=== PATIENT | female | born 1965 | race Caucasian/White ===

== ENCOUNTER 2023-03-28 07:12 | Outpatient (REF) | payer OTHER, SELFPAY ==
[2023-03-28] VITALS (8 sets, daily range): BP systolic 86–117; BP diastolic 69–80
[2023-03-28 07:47] LABS: INR 1.02; PT 13.4 Sec (11.4-14.6)
== END 2023-03-28 12:16 | disposition home or self-care (01) ==
LOC: RADI 07:12
PROVIDERS: ATTENDING PHYSICIAN Internal Medicine Hematology & Oncology; FAMILY PHYSICIAN Family Medicine
DX: C78.7 Secondary malignant neoplasm of liver and intrahepatic bile duct (principal); C50.919 Malignant neoplasm of unspecified site of unspecified female breast; Z01.812 Encounter for preprocedural laboratory examination
CPT/HCPCS: 88307; 36415; 47000; 76942; 85610; 88333; 88341; 88342; 88360; 99152; 99153

== ENCOUNTER → 2023-04-01 07:40 | Outpatient (REF) | payer OTHER, SELFPAY ==
[2023-04-01 09:09] LABS: ALT (SGPT) 31 U/L (0-35); AST (SGOT) 55 U/L (14-36); Albumin 3.3 g/dl (3.5-5.0); Alkaline Phosphatase 208 U/L (38-126); Direct Bilirubin 0.4 mg/dl (0.0-0.4); Total Bilirubin 0.6 mg/dl (0.2-1.3); Total Protein 6.1 g/dl (6.3-8.2)
[2023-04-03 05:53] LABS: CA 27-29 829.1 U/mL (<=39.0)
== END ==
LOC: REG 07:40
PROVIDERS: ATTENDING PHYSICIAN Internal Medicine Hematology & Oncology
DX: C50.919 Malignant neoplasm of unspecified site of unspecified female breast (principal); C79.51 Secondary malignant neoplasm of bone; D64.9 Anemia, unspecified
CPT/HCPCS: 36415; 80076; 86300

== ENCOUNTER → 2023-04-15 13:47 | Outpatient (REF) | payer OTHER, SELFPAY ==
[2023-04-15 12:53] LABS: % Basophils 0.9 % (0-2); % Eosinophils 1.9 % (0-6); % Immature Granulocytes 0.4 % (0-0.5); % Lymphocytes 10.4 % (20.5-51.1); % Monocytes 10.7 % (1.7-9.3); % Neutrophils 75.7 % (42.2-75.2); Absolute Basophils 0.1 10^3/uL (0-0.2); Absolute Eosinophils 0.1 10^3/uL (0-0.7); Absolute Lymphocytes 0.8 10^3/uL (1.2-3.4); Absolute Monocytes 0.8 10^3/uL (0.1-0.6); Absolute Neutrophils 5.6 10^3/uL (1.4-6.5); Hematocrit 29.7 % (37.0-47.0); Hemoglobin 9.3 g/dL (12.0-16.0); Mean Corp Hgb Conc. 31.3 g/dL (33.0-37.0); Mean Corpuscular Hgb 29.6 pg (27.0-31.0); Mean Corpuscular Volume 94.6 fL (81.0-99.0); Mean Platelet Volume 8.8 fL (7.4-10.4); Nucleated Red Blood Cells % 0 %; Platelet Count 475 10^3/uL (130-400); Red Blood Cell Count 3.14 10^6/uL (4.20-5.40); White Blood Cell Count 7.4 10^3/uL (4.8-10.8)
[2023-04-15 13:12] LABS: ALT (SGPT) 27 U/L (0-35); AST (SGOT) 53 U/L (14-36); Albumin 3.6 g/dl (3.5-5.0); Alkaline Phosphatase 346 U/L (38-126); Blood Urea Nitrogen 18 mg/dl (7-17); Carbon Dioxide 25 mmol/L (22-30); Chloride 103 mmol/L (98-107); Glucose 121 mg/dl (70-99); Potassium 4.6 mmol/L (3.5-5.1); Sodium 135 mmol/L (135-145); Total Bilirubin 0.3 mg/dl (0.2-1.3); Total Protein 6.4 g/dl (6.3-8.2); eGFR > 60.00
== END ==
LOC: OIDL 13:47
PROVIDERS: ATTENDING PHYSICIAN Internal Medicine Hematology & Oncology
DX: C50.919 Malignant neoplasm of unspecified site of unspecified female breast (principal)
CPT/HCPCS: 80053; 85025

== ENCOUNTER → 2023-04-22 08:01 | Outpatient (REF) | payer OTHER, SELFPAY ==
[2023-04-22 08:35] LABS: % Basophils 1.7 % (0-2); % Eosinophils 4.8 % (0-6); % Immature Granulocytes 0.4 % (0-0.5); % Monocytes 3.9 % (1.7-9.3); % Neutrophils 69.2 % (42.2-75.2); Absolute Eosinophils 0.1 10^3/uL (0-0.7); Absolute Lymphocytes 0.5 10^3/uL (1.2-3.4); Absolute Monocytes 0.1 10^3/uL (0.1-0.6); Absolute Neutrophils 1.6 10^3/uL (1.4-6.5); Hematocrit 32.9 % (37.0-47.0); Hemoglobin 10.5 g/dL (12.0-16.0); Mean Corp Hgb Conc. 31.9 g/dL (33.0-37.0); Mean Corpuscular Hgb 29.7 pg (27.0-31.0); Mean Corpuscular Volume 92.9 fL (81.0-99.0); Mean Platelet Volume 8.6 fL (7.4-10.4); Nucleated Red Blood Cells % 0 %; Platelet Count 375 10^3/uL (130-400); Red Blood Cell Count 3.54 10^6/uL (4.20-5.40); Red Cell Dist. Width 15.9 % (11.5-14.5); White Blood Cell Count 2.3 10^3/uL (4.8-10.8)
[2023-04-22 09:08] LABS: ALT (SGPT) 46 U/L (0-35); AST (SGOT) 72 U/L (14-36); Albumin 3.7 g/dl (3.5-5.0); Alkaline Phosphatase 323 U/L (38-126); Blood Urea Nitrogen 18 mg/dl (7-17); Calcium 9.4 mg/dl (8.4-10.2); Carbon Dioxide 25 mmol/L (22-30); Chloride 103 mmol/L (98-107); Glucose 154 mg/dl (70-99); Potassium 4.2 mmol/L (3.5-5.1); Sodium 140 mmol/L (135-145); Total Bilirubin 0.3 mg/dl (0.2-1.3); Total Protein 6.8 g/dl (6.3-8.2); eGFR > 60.00
== END ==
LOC: REG 08:01
PROVIDERS: ATTENDING PHYSICIAN Internal Medicine Hematology & Oncology; FAMILY PHYSICIAN Family Medicine
DX: C50.919 Malignant neoplasm of unspecified site of unspecified female breast (principal); C79.51 Secondary malignant neoplasm of bone; D64.9 Anemia, unspecified
CPT/HCPCS: 36415; 80053; 85025

== ENCOUNTER → 2023-04-29 07:11 | Outpatient (REF) | payer OTHER, SELFPAY ==
[2023-04-29 08:35] LABS: ALT (SGPT) 41 U/L (0-35); AST (SGOT) 50 U/L (14-36); Albumin 3.7 g/dl (3.5-5.0); Alkaline Phosphatase 290 U/L (38-126); Blood Urea Nitrogen 17 mg/dl (7-17); Calcium 9.3 mg/dl (8.4-10.2); Carbon Dioxide 25 mmol/L (22-30); Chloride 102 mmol/L (98-107); Glucose 101 mg/dl (70-99); Potassium 4.5 mmol/L (3.5-5.1); Sodium 136 mmol/L (135-145); Total Bilirubin 0.7 mg/dl (0.2-1.3); Total Protein 6.5 g/dl (6.3-8.2); eGFR > 60.00
[2023-04-29 08:47] LABS: % Basophils 0.4 % (0-2); % Eosinophils 1.2 % (0-6); % Lymphocytes 9.7 % (20.5-51.1); % Monocytes 13.3 % (1.7-9.3); % Neutrophils 66.4 % (42.2-75.2); Absolute Eosinophils 0.1 10^3/uL (0-0.7); Absolute Immature Granulocytes 0.7 10^3/uL (0-0.05); Absolute Lymphocytes 0.8 10^3/uL (1.2-3.4); Absolute Monocytes 1.1 10^3/uL (0.1-0.6); Absolute Neutrophils 5.3 10^3/uL (1.4-6.5); Hematocrit 31.7 % (37.0-47.0); Hemoglobin 10.1 g/dL (12.0-16.0); Mean Corp Hgb Conc. 31.9 g/dL (33.0-37.0); Mean Corpuscular Hgb 29.6 pg (27.0-31.0); Nucleated Red Blood Cells % 2.4 %; Red Blood Cell Count 3.41 10^6/uL (4.20-5.40); Red Cell Dist. Width 16.6 % (11.5-14.5)
== END ==
LOC: REG 07:11
PROVIDERS: ATTENDING PHYSICIAN Internal Medicine Hematology & Oncology
DX: C50.919 Malignant neoplasm of unspecified site of unspecified female breast (principal); C79.51 Secondary malignant neoplasm of bone; D64.9 Anemia, unspecified
CPT/HCPCS: 36415; 80053; 85025

== ENCOUNTER → 2023-04-29 13:45 | Outpatient (REF) | payer OTHER, SELFPAY | LOC: RAD 13:45 | PROVIDERS: ATTENDING PHYSICIAN Nurse Practitioner Adult Health; FAMILY PHYSICIAN Family Medicine | DX: C50.919 Malignant neoplasm of unspecified site of unspecified female breast (principal); C79.51 Secondary malignant neoplasm of bone; D64.9 Anemia, unspecified | CPT/HCPCS: 71111 ==

== ENCOUNTER → 2023-05-07 13:34 | Outpatient (REF) | payer OTHER, SELFPAY ==
[2023-05-10 01:17] LABS: CA 27-29 1001.7 U/mL (<=39.0)
== END ==
LOC: OIDL 13:34
PROVIDERS: ATTENDING PHYSICIAN Internal Medicine Hematology & Oncology
DX: C50.919 Malignant neoplasm of unspecified site of unspecified female breast (principal)
CPT/HCPCS: 86300

== ENCOUNTER → 2023-05-13 07:07 | Outpatient (REF) | payer OTHER, SELFPAY ==
[2023-05-13 08:36] LABS: % Basophils 1.9 % (0-2); % Eosinophils 1.4 % (0-6); % Immature Granulocytes 0.9 % (0-0.5); % Lymphocytes 23.1 % (20.5-51.1); % Monocytes 7.5 % (1.7-9.3); % Neutrophils 65.2 % (42.2-75.2); Absolute Lymphocytes 0.5 10^3/uL (1.2-3.4); Absolute Monocytes 0.2 10^3/uL (0.1-0.6); Absolute Neutrophils 1.4 10^3/uL (1.4-6.5); Hematocrit 28.4 % (37.0-47.0); Hemoglobin 9.4 g/dL (12.0-16.0); Mean Corp Hgb Conc. 33.1 g/dL (33.0-37.0); Mean Corpuscular Volume 90.7 fL (81.0-99.0); Mean Platelet Volume 9.6 fL (7.4-10.4); Nucleated Red Blood Cells % 0 %; Platelet Count 230 10^3/uL (130-400); Red Blood Cell Count 3.13 10^6/uL (4.20-5.40); Red Cell Dist. Width 17.6 % (11.5-14.5); White Blood Cell Count 2.1 10^3/uL (4.8-10.8)
[2023-05-13 09:07] LABS: ALT (SGPT) 63 U/L (0-35); AST (SGOT) 75 U/L (14-36); Albumin 3.7 g/dl (3.5-5.0); Alkaline Phosphatase 293 U/L (38-126); Blood Urea Nitrogen 20 mg/dl (7-17); Calcium 9.1 mg/dl (8.4-10.2); Carbon Dioxide 24 mmol/L (22-30); Chloride 106 mmol/L (98-107); Glucose 93 mg/dl (70-99); Potassium 4.3 mmol/L (3.5-5.1); Sodium 137 mmol/L (135-145); Total Bilirubin 0.4 mg/dl (0.2-1.3); Total Protein 6.5 g/dl (6.3-8.2); eGFR > 60.00
== END ==
LOC: REG 07:07
PROVIDERS: ATTENDING PHYSICIAN Internal Medicine Hematology & Oncology; FAMILY PHYSICIAN Family Medicine
DX: C50.919 Malignant neoplasm of unspecified site of unspecified female breast (principal); C79.51 Secondary malignant neoplasm of bone; D64.9 Anemia, unspecified
CPT/HCPCS: 36415; 80053; 85025

== ENCOUNTER → 2023-05-14 09:07 | Outpatient (REF) | payer OTHER, SELFPAY | LOC: PAVMRI 09:07 | PROVIDERS: ATTENDING PHYSICIAN Internal Medicine Hematology & Oncology; FAMILY PHYSICIAN Family Medicine | DX: C50.919 Malignant neoplasm of unspecified site of unspecified female breast (principal); C79.51 Secondary malignant neoplasm of bone; D64.9 Anemia, unspecified | CPT/HCPCS: 70553; A9575 ==

== ENCOUNTER → 2023-05-20 08:22 | Outpatient (REF) | payer OTHER, SELFPAY ==
[2023-05-20 09:22] LABS: Hematocrit 28.4 % (37.0-47.0); Mean Corp Hgb Conc. 31.7 g/dL (33.0-37.0); Mean Corpuscular Hgb 29.5 pg (27.0-31.0); Mean Corpuscular Volume 93.1 fL (81.0-99.0); Mean Platelet Volume 10.3 fL (7.4-10.4); Platelet Count 239 10^3/uL (130-400); Red Blood Cell Count 3.05 10^6/uL (4.20-5.40); Red Cell Dist. Width 18.3 % (11.5-14.5); White Blood Cell Count 9.4 10^3/uL (4.8-10.8)
[2023-05-20 09:46] LABS: ALT (SGPT) 38 U/L (0-35); AST (SGOT) 42 U/L (14-36); Albumin 3.8 g/dl (3.5-5.0); Alkaline Phosphatase 238 U/L (38-126); Blood Urea Nitrogen 24 mg/dl (7-17); Calcium 9.4 mg/dl (8.4-10.2); Carbon Dioxide 25 mmol/L (22-30); Chloride 103 mmol/L (98-107); Glucose 110 mg/dl (70-99); Potassium 4.5 mmol/L (3.5-5.1); Sodium 136 mmol/L (135-145); Total Bilirubin 0.4 mg/dl (0.2-1.3); Total Protein 6.4 g/dl (6.3-8.2); eGFR > 60.00
[2023-05-20 10:36] LABS: Band Neutrophils 8 % (0-3); Eosinophils 1 % (0-6); Lymphocytes 14 % (20-51); Metamyelocytes 1 % (-); Monocytes 7 % (2-9); Myelocytes 2 % (-); Segmented Neutrophils 67 % (42-75)
[2023-05-20 10:37] LABS: Anisocytosis Slight; Normal RBC Morphology No; Ovalocytes Slight; Platelets Checked Yes; Polychromasia Slight; Total Cells Counted 100
== END ==
LOC: REG 08:22
PROVIDERS: ATTENDING PHYSICIAN Internal Medicine Hematology & Oncology; FAMILY PHYSICIAN Family Medicine
DX: C50.919 Malignant neoplasm of unspecified site of unspecified female breast (principal); C79.51 Secondary malignant neoplasm of bone; D64.9 Anemia, unspecified
CPT/HCPCS: 36415; 80053; 85025

== ENCOUNTER → 2023-06-03 07:36 | Outpatient (REF) | payer OTHER, SELFPAY ==
[2023-06-03 09:15] LABS: % Basophils 0.8 % (0-2); % Eosinophils 2.4 % (0-6); % Immature Granulocytes 1.2 % (0-0.5); % Lymphocytes 15.7 % (20.5-51.1); % Monocytes 9.3 % (1.7-9.3); % Neutrophils 70.6 % (42.2-75.2); Absolute Eosinophils 0.1 10^3/uL (0-0.7); Absolute Lymphocytes 0.4 10^3/uL (1.2-3.4); Absolute Monocytes 0.2 10^3/uL (0.1-0.6); Absolute Neutrophils 1.8 10^3/uL (1.4-6.5); Hematocrit 25.9 % (37.0-47.0); Hemoglobin 8.2 g/dL (12.0-16.0); Mean Corp Hgb Conc. 31.7 g/dL (33.0-37.0); Mean Corpuscular Hgb 29.6 pg (27.0-31.0); Mean Corpuscular Volume 93.5 fL (81.0-99.0); Mean Platelet Volume 9.9 fL (7.4-10.4); Nucleated Red Blood Cells % 0 %; Platelet Count 177 10^3/uL (130-400); Red Blood Cell Count 2.77 10^6/uL (4.20-5.40); Red Cell Dist. Width 19.5 % (11.5-14.5); White Blood Cell Count 2.5 10^3/uL (4.8-10.8)
[2023-06-03 09:49] LABS: ALT (SGPT) 39 U/L (0-35); AST (SGOT) 63 U/L (14-36); Albumin 3.7 g/dl (3.5-5.0); Alkaline Phosphatase 244 U/L (38-126); Blood Urea Nitrogen 17 mg/dl (7-17); Calcium 9.3 mg/dl (8.4-10.2); Carbon Dioxide 25 mmol/L (22-30); Chloride 105 mmol/L (98-107); Glucose 108 mg/dl (70-99); Potassium 4.3 mmol/L (3.5-5.1); Sodium 138 mmol/L (135-145); Total Bilirubin 0.4 mg/dl (0.2-1.3); Total Protein 6.3 g/dl (6.3-8.2); eGFR > 60.00
== END ==
LOC: REG 07:36
PROVIDERS: ATTENDING PHYSICIAN Internal Medicine Hematology & Oncology; FAMILY PHYSICIAN Family Medicine
DX: C50.919 Malignant neoplasm of unspecified site of unspecified female breast (principal); C79.51 Secondary malignant neoplasm of bone; D64.9 Anemia, unspecified
CPT/HCPCS: 36415; 80053; 85025

== ENCOUNTER → 2023-06-10 06:57 | Outpatient (REF) | payer OTHER, SELFPAY ==
[2023-06-10 08:15] LABS: % Basophils 0.4 % (0-2); % Eosinophils 1.6 % (0-6); % Immature Granulocytes 8.2 % (0-0.5); % Lymphocytes 6.5 % (20.5-51.1); % Monocytes 10.7 % (1.7-9.3); % Neutrophils 72.6 % (42.2-75.2); Absolute Basophils 0.1 10^3/uL (0-0.2); Absolute Eosinophils 0.3 10^3/uL (0-0.7); Absolute Immature Granulocytes 1.3 10^3/uL (0-0.05); Absolute Monocytes 1.7 10^3/uL (0.1-0.6); Absolute Neutrophils 11.6 10^3/uL (1.4-6.5); Hematocrit 26.2 % (37.0-47.0); Hemoglobin 8.3 g/dL (12.0-16.0); Mean Corp Hgb Conc. 31.7 g/dL (33.0-37.0); Mean Corpuscular Hgb 29.6 pg (27.0-31.0); Mean Corpuscular Volume 93.6 fL (81.0-99.0); Nucleated Red Blood Cells % 2.6 %; Platelet Count 250 10^3/uL (130-400); Red Cell Dist. Width 20.9 % (11.5-14.5)
[2023-06-10 09:01] LABS: ALT (SGPT) 40 U/L (0-35); AST (SGOT) 55 U/L (14-36); Albumin 3.8 g/dl (3.5-5.0); Alkaline Phosphatase 286 U/L (38-126); Blood Urea Nitrogen 17 mg/dl (7-17); Calcium 9.7 mg/dl (8.4-10.2); Carbon Dioxide 26 mmol/L (22-30); Chloride 105 mmol/L (98-107); Glucose 90 mg/dl (70-99); Potassium 4.7 mmol/L (3.5-5.1); Sodium 138 mmol/L (135-145); Total Bilirubin 0.4 mg/dl (0.2-1.3); Total Protein 6.2 g/dl (6.3-8.2); eGFR > 60.00
[2023-06-10 09:59] LABS: Folate 11.6 ng/ml (2.76-20); Vitamin B12 > 1000 pg/ml (239-931)
== END ==
LOC: REG 06:57
PROVIDERS: ATTENDING PHYSICIAN Internal Medicine Hematology & Oncology; FAMILY PHYSICIAN Family Medicine
DX: C50.919 Malignant neoplasm of unspecified site of unspecified female breast (principal); C79.51 Secondary malignant neoplasm of bone; D64.9 Anemia, unspecified
CPT/HCPCS: 36415; 80053; 82607; 82746; 85025

== ENCOUNTER → 2023-06-17 07:50 | Outpatient (REF) | payer OTHER, SELFPAY ==
[2023-06-17 08:36] LABS: % Basophils 0.7 % (0-2); % Eosinophils 2.3 % (0-6); % Immature Granulocytes 5.2 % (0-0.5); % Lymphocytes 5.6 % (20.5-51.1); % Monocytes 5.9 % (1.7-9.3); % Neutrophils 80.3 % (42.2-75.2); Absolute Basophils 0.1 10^3/uL (0-0.2); Absolute Eosinophils 0.3 10^3/uL (0-0.7); Absolute Immature Granulocytes 0.7 10^3/uL (0-0.05); Absolute Lymphocytes 0.7 10^3/uL (1.2-3.4); Absolute Monocytes 0.8 10^3/uL (0.1-0.6); Absolute Neutrophils 10.3 10^3/uL (1.4-6.5); Hematocrit 24.7 % (37.0-47.0); Hemoglobin 7.8 g/dL (12.0-16.0); Mean Corp Hgb Conc. 31.6 g/dL (33.0-37.0); Mean Corpuscular Hgb 29.2 pg (27.0-31.0); Mean Corpuscular Volume 92.5 fL (81.0-99.0); Mean Platelet Volume 9.6 fL (7.4-10.4); Nucleated Red Blood Cells % 1.2 %; Platelet Count 190 10^3/uL (130-400); Red Blood Cell Count 2.67 10^6/uL (4.20-5.40); Red Cell Dist. Width 21.9 % (11.5-14.5); White Blood Cell Count 12.9 10^3/uL (4.8-10.8)
[2023-06-17 09:05] LABS: ALT (SGPT) 39 U/L (0-35); AST (SGOT) 56 U/L (14-36); Albumin 3.5 g/dl (3.5-5.0); Alkaline Phosphatase 266 U/L (38-126); Blood Urea Nitrogen 16 mg/dl (7-17); Calcium 8.8 mg/dl (8.4-10.2); Carbon Dioxide 24 mmol/L (22-30); Chloride 106 mmol/L (98-107); Glucose 123 mg/dl (70-99); Potassium 3.8 mmol/L (3.5-5.1); Sodium 137 mmol/L (135-145); Total Bilirubin 0.3 mg/dl (0.2-1.3); eGFR > 60.00
[2023-06-18 16:51] LABS: CA 27-29 1259.2 U/mL (<=39.0)
== END ==
LOC: REG 07:50
PROVIDERS: ATTENDING PHYSICIAN Internal Medicine Hematology & Oncology; FAMILY PHYSICIAN Family Medicine
DX: C50.919 Malignant neoplasm of unspecified site of unspecified female breast (principal); C79.51 Secondary malignant neoplasm of bone; D64.9 Anemia, unspecified
CPT/HCPCS: 36415; 71111; 80053; 85025; 86300

== ENCOUNTER 2023-06-19 09:10 | Outpatient (RCR) | payer OTHER, SELFPAY ==
[2023-06-18 13:51] LABS: % Basophils 0.6 % (0-2); % Eosinophils 2.6 % (0-6); % Immature Granulocytes 1.7 % (0-0.5); % Lymphocytes 7.5 % (20.5-51.1); % Monocytes 6.8 % (1.7-9.3); % Neutrophils 80.8 % (42.2-75.2); Absolute Basophils 0.1 10^3/uL (0-0.2); Absolute Eosinophils 0.3 10^3/uL (0-0.7); Absolute Immature Granulocytes 0.2 10^3/uL (0-0.05); Absolute Lymphocytes 0.9 10^3/uL (1.2-3.4); Absolute Monocytes 0.8 10^3/uL (0.1-0.6); Absolute Neutrophils 9.8 10^3/uL (1.4-6.5); Hematocrit 25.4 % (37.0-47.0); Mean Corp Hgb Conc. 31.5 g/dL (33.0-37.0); Mean Corpuscular Volume 95.1 fL (81.0-99.0); Platelet Count 183 10^3/uL (130-400); Red Blood Cell Count 2.67 10^6/uL (4.20-5.40); Red Cell Dist. Width 21.5 % (11.5-14.5); White Blood Cell Count 12.1 10^3/uL (4.8-10.8)
[2023-06-18 15:36] LABS: ALT (SGPT) 39 U/L (0-35); AST (SGOT) 65 U/L (14-36); Albumin 3.7 g/dl (3.5-5.0); Alkaline Phosphatase 278 U/L (38-126); Blood Urea Nitrogen 15 mg/dl (7-17); Calcium 9.3 mg/dl (8.4-10.2); Carbon Dioxide 22 mmol/L (22-30); Chloride 104 mmol/L (98-107); Glucose 113 mg/dl (70-99); Iron 55 ug/dl (37-170); Potassium 4.3 mmol/L (3.5-5.1); Sodium 136 mmol/L (135-145); Total Bilirubin 0.4 mg/dl (0.2-1.3); Total Protein 6.2 g/dl (6.3-8.2); eGFR > 60.00
[2023-06-18 15:46] LABS: Percent Saturation 20 % (20-50); Total Iron Binding Capacity 266 ug/dl (265-497)
[2023-06-19] VITALS (7 sets, daily range): BP systolic 88–105; BP diastolic 55–63
[2023-06-19] MEDS: TYLENOL 650 MG PO (09:48)
== END 2023-07-12 23:59 | disposition home or self-care (01) ==
LOC: OID 09:10
PROVIDERS: ATTENDING PHYSICIAN Internal Medicine Hematology & Oncology; FAMILY PHYSICIAN Family Medicine
DX: C50.912 Malignant neoplasm of unspecified site of left female breast (principal); C79.51 Secondary malignant neoplasm of bone; Z17.0 Estrogen receptor positive status [ER+]
CPT/HCPCS: 36430; 80053; 82728; 83540; 83550; 85025; 86850; 86900; 86901; 86920; P9016

== ENCOUNTER → 2023-06-24 06:57 | Outpatient (REF) | payer OTHER, SELFPAY ==
[2023-06-24 08:02] LABS: % Basophils 1.7 % (0-2); % Eosinophils 4.5 % (0-6); % Immature Granulocytes 2.1 % (0-0.5); % Lymphocytes 11.6 % (20.5-51.1); % Monocytes 6.6 % (1.7-9.3); % Neutrophils 73.5 % (42.2-75.2); Absolute Eosinophils 0.1 10^3/uL (0-0.7); Absolute Immature Granulocytes 0.1 10^3/uL (0-0.05); Absolute Lymphocytes 0.3 10^3/uL (1.2-3.4); Absolute Monocytes 0.2 10^3/uL (0.1-0.6); Absolute Neutrophils 1.8 10^3/uL (1.4-6.5); Hematocrit 35.2 % (37.0-47.0); Hemoglobin 11.2 g/dL (12.0-16.0); Mean Corp Hgb Conc. 31.8 g/dL (33.0-37.0); Mean Corpuscular Hgb 29.3 pg (27.0-31.0); Mean Corpuscular Volume 92.1 fL (81.0-99.0); Mean Platelet Volume 9.6 fL (7.4-10.4); Nucleated Red Blood Cells % 0 %; Platelet Count 139 10^3/uL (130-400); Red Blood Cell Count 3.82 10^6/uL (4.20-5.40); Red Cell Dist. Width 18.7 % (11.5-14.5); White Blood Cell Count 2.4 10^3/uL (4.8-10.8)
[2023-06-24 08:26] LABS: ALT (SGPT) 70 U/L (0-35); AST (SGOT) 83 U/L (14-36); Albumin 3.6 g/dl (3.5-5.0); Alkaline Phosphatase 339 U/L (38-126); Blood Urea Nitrogen 16 mg/dl (7-17); Calcium 9.3 mg/dl (8.4-10.2); Carbon Dioxide 27 mmol/L (22-30); Chloride 104 mmol/L (98-107); Glucose 91 mg/dl (70-99); Potassium 4.4 mmol/L (3.5-5.1); Sodium 139 mmol/L (135-145); Total Bilirubin 0.5 mg/dl (0.2-1.3); Total Protein 6.2 g/dl (6.3-8.2); eGFR > 60.00
== END ==
LOC: REG 06:57
PROVIDERS: ATTENDING PHYSICIAN Internal Medicine Hematology & Oncology
DX: C50.919 Malignant neoplasm of unspecified site of unspecified female breast (principal); C79.51 Secondary malignant neoplasm of bone; D64.9 Anemia, unspecified
CPT/HCPCS: 36415; 80053; 85025

== ENCOUNTER → 2023-07-01 07:43 | Outpatient (REF) | payer OTHER, SELFPAY ==
[2023-07-01 08:59] LABS: % Basophils 0.4 % (0-2); % Eosinophils 2.1 % (0-6); % Immature Granulocytes 5.4 % (0-0.5); % Lymphocytes 5.7 % (20.5-51.1); % Monocytes 10.2 % (1.7-9.3); % Neutrophils 76.2 % (42.2-75.2); Absolute Eosinophils 0.2 10^3/uL (0-0.7); Absolute Immature Granulocytes 0.4 10^3/uL (0-0.05); Absolute Lymphocytes 0.4 10^3/uL (1.2-3.4); Absolute Monocytes 0.7 10^3/uL (0.1-0.6); Absolute Neutrophils 5.4 10^3/uL (1.4-6.5); Hematocrit 32.1 % (37.0-47.0); Hemoglobin 10.2 g/dL (12.0-16.0); Mean Corp Hgb Conc. 31.8 g/dL (33.0-37.0); Mean Corpuscular Hgb 29.1 pg (27.0-31.0); Mean Corpuscular Volume 91.5 fL (81.0-99.0); Mean Platelet Volume 10.6 fL (7.4-10.4); Nucleated Red Blood Cells % 0.6 %; Platelet Count 166 10^3/uL (130-400); Red Blood Cell Count 3.51 10^6/uL (4.20-5.40); Red Cell Dist. Width 18.6 % (11.5-14.5); White Blood Cell Count 7.1 10^3/uL (4.8-10.8)
[2023-07-01 09:36] LABS: ALT (SGPT) 55 U/L (0-35); AST (SGOT) 65 U/L (14-36); Albumin 3.6 g/dl (3.5-5.0); Alkaline Phosphatase 309 U/L (38-126); Blood Urea Nitrogen 16 mg/dl (7-17); Calcium 9.5 mg/dl (8.4-10.2); Carbon Dioxide 26 mmol/L (22-30); Chloride 105 mmol/L (98-107); Glucose 95 mg/dl (70-99); Potassium 4.2 mmol/L (3.5-5.1); Sodium 140 mmol/L (135-145); Total Bilirubin 0.6 mg/dl (0.2-1.3); Total Protein 6.1 g/dl (6.3-8.2); eGFR > 60.00
== END ==
LOC: REG 07:43
PROVIDERS: ATTENDING PHYSICIAN Internal Medicine Hematology & Oncology; FAMILY PHYSICIAN Family Medicine
DX: C50.919 Malignant neoplasm of unspecified site of unspecified female breast (principal); C79.51 Secondary malignant neoplasm of bone; D64.9 Anemia, unspecified
CPT/HCPCS: 36415; 80053; 85025

== ENCOUNTER → 2023-07-09 07:00 | Outpatient (REF) | payer OTHER, SELFPAY ==
[2023-07-09 08:34] LABS: % Basophils 0.7 % (0-2); % Eosinophils 1.7 % (0-6); % Immature Granulocytes 4.3 % (0-0.5); % Lymphocytes 7.4 % (20.5-51.1); % Monocytes 5.2 % (1.7-9.3); % Neutrophils 80.7 % (42.2-75.2); Absolute Basophils 0.1 10^3/uL (0-0.2); Absolute Eosinophils 0.3 10^3/uL (0-0.7); Absolute Immature Granulocytes 0.7 10^3/uL (0-0.05); Absolute Lymphocytes 1.1 10^3/uL (1.2-3.4); Absolute Monocytes 0.8 10^3/uL (0.1-0.6); Absolute Neutrophils 12.1 10^3/uL (1.4-6.5); Hematocrit 31.5 % (37.0-47.0); Hemoglobin 10.1 g/dL (12.0-16.0); Mean Corp Hgb Conc. 32.1 g/dL (33.0-37.0); Mean Corpuscular Hgb 30.2 pg (27.0-31.0); Mean Corpuscular Volume 94.3 fL (81.0-99.0); Mean Platelet Volume 9.6 fL (7.4-10.4); Nucleated Red Blood Cells % 0.6 %; Platelet Count 219 10^3/uL (130-400); Red Blood Cell Count 3.34 10^6/uL (4.20-5.40); Red Cell Dist. Width 19.4 % (11.5-14.5); White Blood Cell Count 15.1 10^3/uL (4.8-10.8)
[2023-07-09 08:44] LABS: ALT (SGPT) 55 U/L (0-35); AST (SGOT) 79 U/L (14-36); Albumin 3.6 g/dl (3.5-5.0); Alkaline Phosphatase 368 U/L (38-126); Blood Urea Nitrogen 12 mg/dl (7-17); Calcium 9.4 mg/dl (8.4-10.2); Carbon Dioxide 28 mmol/L (22-30); Chloride 105 mmol/L (98-107); Glucose 87 mg/dl (70-99); Potassium 4.7 mmol/L (3.5-5.1); Sodium 140 mmol/L (135-145); Total Bilirubin 0.5 mg/dl (0.2-1.3); Total Protein 6.3 g/dl (6.3-8.2); eGFR > 60.00
== END ==
LOC: REG 07:00
PROVIDERS: ATTENDING PHYSICIAN Internal Medicine Hematology & Oncology; FAMILY PHYSICIAN Family Medicine
DX: C50.919 Malignant neoplasm of unspecified site of unspecified female breast (principal); C79.51 Secondary malignant neoplasm of bone; D64.9 Anemia, unspecified
CPT/HCPCS: 36415; 80053; 85025

== ENCOUNTER → 2023-08-12 07:14 | Outpatient (REF) | payer OTHER, SELFPAY ==
[2023-08-12 08:41] LABS: % Basophils 0.3 % (0-2); % Eosinophils 12.9 % (0-6); % Immature Granulocytes 0.3 % (0-0.5); % Lymphocytes 10.6 % (20.5-51.1); % Monocytes 6.6 % (1.7-9.3); % Neutrophils 69.3 % (42.2-75.2); Absolute Eosinophils 0.5 10^3/uL (0-0.7); Absolute Lymphocytes 0.4 10^3/uL (1.2-3.4); Absolute Monocytes 0.2 10^3/uL (0.1-0.6); Absolute Neutrophils 2.4 10^3/uL (1.4-6.5); Hematocrit 32.2 % (37.0-47.0); Mean Corp Hgb Conc. 31.1 g/dL (33.0-37.0); Mean Corpuscular Hgb 29.7 pg (27.0-31.0); Mean Corpuscular Volume 95.5 fL (81.0-99.0); Mean Platelet Volume 9.7 fL (7.4-10.4); Nucleated Red Blood Cells % 0 %; Platelet Count 288 10^3/uL (130-400); Red Blood Cell Count 3.37 10^6/uL (4.20-5.40); Red Cell Dist. Width 18.6 % (11.5-14.5); White Blood Cell Count 3.5 10^3/uL (4.8-10.8)
[2023-08-12 09:10] LABS: ALT (SGPT) 40 U/L (0-35); AST (SGOT) 97 U/L (14-36); Albumin 3.5 g/dl (3.5-5.0); Alkaline Phosphatase 526 U/L (38-126); Blood Urea Nitrogen 14 mg/dl (7-17); Calcium 8.9 mg/dl (8.4-10.2); Carbon Dioxide 25 mmol/L (22-30); Chloride 106 mmol/L (98-107); Glucose 79 mg/dl (70-99); Potassium 4.5 mmol/L (3.5-5.1); Sodium 139 mmol/L (135-145); Total Bilirubin 0.7 mg/dl (0.2-1.3); Total Protein 6.6 g/dl (6.3-8.2); eGFR > 60.00
== END ==
LOC: REG 07:14
PROVIDERS: ATTENDING PHYSICIAN Internal Medicine Hematology & Oncology; FAMILY PHYSICIAN Family Medicine
DX: C50.919 Malignant neoplasm of unspecified site of unspecified female breast (principal); C79.51 Secondary malignant neoplasm of bone; D64.9 Anemia, unspecified; I26.99 Other pulmonary embolism without acute cor pulmonale
CPT/HCPCS: 36415; 80053; 85025

== ENCOUNTER → 2023-08-26 07:33 | Outpatient (REF) | payer OTHER, SELFPAY ==
[2023-08-26 08:19] LABS: % Basophils 0.2 % (0-2); % Immature Granulocytes 0.8 % (0-0.5); % Lymphocytes 5.5 % (20.5-51.1); % Monocytes 6.2 % (1.7-9.3); % Neutrophils 87.3 % (42.2-75.2); Absolute Immature Granulocytes 0.1 10^3/uL (0-0.05); Absolute Lymphocytes 0.7 10^3/uL (1.2-3.4); Absolute Monocytes 0.8 10^3/uL (0.1-0.6); Absolute Neutrophils 10.7 10^3/uL (1.4-6.5); Hematocrit 29.8 % (37.0-47.0); Hemoglobin 9.9 g/dL (12.0-16.0); Mean Corp Hgb Conc. 33.2 g/dL (33.0-37.0); Mean Corpuscular Hgb 30.9 pg (27.0-31.0); Mean Corpuscular Volume 93.1 fL (81.0-99.0); Mean Platelet Volume 9.1 fL (7.4-10.4); Nucleated Red Blood Cells % 0.2 %; Platelet Count 344 10^3/uL (130-400); Red Cell Dist. Width 18.9 % (11.5-14.5); White Blood Cell Count 12.3 10^3/uL (4.8-10.8)
[2023-08-26 09:00] LABS: ALT (SGPT) 96 U/L (0-35); AST (SGOT) 143 U/L (14-36); Albumin 3.4 g/dl (3.5-5.0); Alkaline Phosphatase 556 U/L (38-126); Blood Urea Nitrogen 23 mg/dl (7-17); Calcium 9.5 mg/dl (8.4-10.2); Carbon Dioxide 24 mmol/L (22-30); Chloride 105 mmol/L (98-107); Glucose 89 mg/dl (70-99); Potassium 4.8 mmol/L (3.5-5.1); Sodium 138 mmol/L (135-145); Total Protein 6.4 g/dl (6.3-8.2); eGFR > 60.00
== END ==
LOC: REG 07:33
PROVIDERS: ATTENDING PHYSICIAN Internal Medicine Hematology & Oncology; FAMILY PHYSICIAN Family Medicine
DX: C50.919 Malignant neoplasm of unspecified site of unspecified female breast (principal); C79.51 Secondary malignant neoplasm of bone; D64.9 Anemia, unspecified; I26.99 Other pulmonary embolism without acute cor pulmonale
CPT/HCPCS: 36415; 80053; 85025

== ENCOUNTER → 2023-09-16 12:09 | Outpatient (REF) | payer OTHER, SELFPAY ==
[2023-09-16 13:01] VITALS: BP 98/69; BP_SYST 87
== END ==
LOC: RADI 12:09
PROVIDERS: ATTENDING PHYSICIAN Internal Medicine Hematology & Oncology; FAMILY PHYSICIAN Family Medicine
DX: R22.2 Localized swelling, mass and lump, trunk (principal); C50.919 Malignant neoplasm of unspecified site of unspecified female breast; C79.51 Secondary malignant neoplasm of bone; D64.9 Anemia, unspecified
CPT/HCPCS: 49180; 76942

== ENCOUNTER → 2023-09-23 07:11 | Outpatient (REF) | payer OTHER, SELFPAY ==
[2023-09-23 08:17] LABS: % Immature Granulocytes 0.7 % (0-0.5); % Monocytes 9.7 % (1.7-9.3); % Neutrophils 79.6 % (42.2-75.2); Absolute Basophils 0.1 10^3/uL (0-0.2); Absolute Eosinophils 0.2 10^3/uL (0-0.7); Absolute Immature Granulocytes 0.1 10^3/uL (0-0.05); Absolute Lymphocytes 0.6 10^3/uL (1.2-3.4); Absolute Monocytes 0.8 10^3/uL (0.1-0.6); Absolute Neutrophils 6.9 10^3/uL (1.4-6.5); Hematocrit 29.2 % (37.0-47.0); Mean Corp Hgb Conc. 34.2 g/dL (33.0-37.0); Mean Corpuscular Hgb 30.9 pg (27.0-31.0); Mean Corpuscular Volume 90.1 fL (81.0-99.0); Mean Platelet Volume 9.7 fL (7.4-10.4); Nucleated Red Blood Cells % 0.2 %; Platelet Count 391 10^3/uL (130-400); Red Blood Cell Count 3.24 10^6/uL (4.20-5.40); Red Cell Dist. Width 19.5 % (11.5-14.5); White Blood Cell Count 8.6 10^3/uL (4.8-10.8)
[2023-09-23 08:53] LABS: ALT (SGPT) 97 U/L (0-35); AST (SGOT) 200 U/L (14-36); Albumin 3.1 g/dl (3.5-5.0); Alkaline Phosphatase 859 U/L (38-126); Blood Urea Nitrogen 20 mg/dl (7-17); Calcium 9.3 mg/dl (8.4-10.2); Carbon Dioxide 27 mmol/L (22-30); Chloride 102 mmol/L (98-107); Glucose 64 mg/dl (70-99); Potassium 4.7 mmol/L (3.5-5.1); Sodium 135 mmol/L (135-145); Total Protein 5.6 g/dl (6.3-8.2); eGFR 51.82
== END ==
LOC: REG 07:11
PROVIDERS: ATTENDING PHYSICIAN Internal Medicine Hematology & Oncology; FAMILY PHYSICIAN Family Medicine
DX: C50.919 Malignant neoplasm of unspecified site of unspecified female breast (principal); C79.51 Secondary malignant neoplasm of bone; D64.9 Anemia, unspecified; I26.99 Other pulmonary embolism without acute cor pulmonale
CPT/HCPCS: 36415; 80053; 85025

== ENCOUNTER 2023-09-25 06:04 | Day surgery (SDC) | payer OTHER, SELFPAY ==
--- NOTE | 2023-09-24 09:44 | PTCARENOTE ---
Abn Labs (GFR, Creatinine, Glucose), Nedra at Dr. Duncan's office made aware.
--- NOTE | 2023-09-24 14:20 | PTCARENOTE ---
[facility] labs, Dr. Jacobs with Anesthesia notified, no further actions requested.
[2023-09-25 06:55] VITALS: BMI 19.1
[2023-09-25 07:00] VITALS: BP 111/69
[2023-09-25 07:13] VITALS: BMI 19.1
[2023-09-25] MEDS: TYLENOL 1000 MG PO (07:14)
[2023-09-25] MEDS: NORMOSOL-R 1000 IV (07:20)
[2023-09-25 08:22] VITALS: BP 113/73
== END 2023-09-25 08:50 | disposition home or self-care (01) ==
LOC: SDS 06:04
PROVIDERS: ATTENDING PHYSICIAN Surgery
DX: R19.09 Other intra-abdominal and pelvic swelling, mass and lump (principal); M79.9 Soft tissue disorder, unspecified; D36.7 Benign neoplasm of other specified sites
CPT/HCPCS: 22902; 88304; 88341; 88342

== ENCOUNTER → 2023-10-04 16:16 | Outpatient (REF) | payer OTHER, SELFPAY ==
[2023-10-04 10:42] LABS: % Eosinophils 1.6 % (0-6); % Immature Granulocytes 1.4 % (0-0.5); % Lymphocytes 4.6 % (20.5-51.1); % Monocytes 7.4 % (1.7-9.3); Absolute Basophils 0.1 10^3/uL (0-0.2); Absolute Eosinophils 0.1 10^3/uL (0-0.7); Absolute Immature Granulocytes 0.1 10^3/uL (0-0.05); Absolute Lymphocytes 0.4 10^3/uL (1.2-3.4); Absolute Monocytes 0.7 10^3/uL (0.1-0.6); Absolute Neutrophils 7.5 10^3/uL (1.4-6.5); Hematocrit 29.3 % (37.0-47.0); Hemoglobin 10.1 g/dL (12.0-16.0); Mean Corp Hgb Conc. 34.5 g/dL (33.0-37.0); Mean Corpuscular Volume 86.9 fL (81.0-99.0); Mean Platelet Volume 9.7 fL (7.4-10.4); Nucleated Red Blood Cells % 1.6 %; Platelet Count 478 10^3/uL (130-400); Red Blood Cell Count 3.37 10^6/uL (4.20-5.40); Red Cell Dist. Width 20.7 % (11.5-14.5); White Blood Cell Count 8.9 10^3/uL (4.8-10.8)
[2023-10-04 10:54] LABS: ALT (SGPT) 98 U/L (0-35); AST (SGOT) 193 U/L (14-36); Alkaline Phosphatase 999 U/L (38-126); Blood Urea Nitrogen 15 mg/dl (7-17); Calcium 9.2 mg/dl (8.4-10.2); Carbon Dioxide 21 mmol/L (22-30); Chloride 104 mmol/L (98-107); Glucose 161 mg/dl (70-99); Potassium 4.9 mmol/L (3.5-5.1); Sodium 136 mmol/L (135-145); Total Bilirubin 2.7 mg/dl (0.2-1.3); Total Protein 5.4 g/dl (6.3-8.2); eGFR > 60.00
[2023-10-06 03:30] LABS: CA 27-29 7409.1 U/mL (<=39.0)
== END ==
LOC: OIDL 16:16
PROVIDERS: ATTENDING PHYSICIAN Internal Medicine Hematology & Oncology
DX: C50.919 Malignant neoplasm of unspecified site of unspecified female breast (principal)
CPT/HCPCS: 80053; 85025; 86300

== ENCOUNTER → 2023-10-15 07:01 | Outpatient (REF) | payer OTHER, SELFPAY ==
[2023-10-15 08:55] LABS: ALT (SGPT) 208 U/L (0-35); AST (SGOT) 464 U/L (14-36); Albumin 2.7 g/dl (3.5-5.0); Alkaline Phosphatase 1144 U/L (38-126); Blood Urea Nitrogen 29 mg/dl (7-17); Calcium 9.6 mg/dl (8.4-10.2); Carbon Dioxide 24 mmol/L (22-30); Chloride 102 mmol/L (98-107); Glucose 88 mg/dl (70-99); Potassium 4.8 mmol/L (3.5-5.1); Sodium 135 mmol/L (135-145); Total Bilirubin 4.7 mg/dl (0.2-1.3); Total Protein 5.1 g/dl (6.3-8.2); eGFR 57.52
[2023-10-15 09:08] LABS: Hematocrit 25.5 % (37.0-47.0); Hemoglobin 9.1 g/dL (12.0-16.0); Mean Corp Hgb Conc. 35.7 g/dL (33.0-37.0); Mean Corpuscular Volume 84.2 fL (81.0-99.0); Mean Platelet Volume 9.8 fL (7.4-10.4); Platelet Count 258 10^3/uL (130-400); Red Blood Cell Count 3.03 10^6/uL (4.20-5.40); Red Cell Dist. Width 19.9 % (11.5-14.5); White Blood Cell Count 5.9 10^3/uL (4.8-10.8)
[2023-10-15 10:11] LABS: % Basophils 0.7 % (0-2); % Eosinophils 0.5 % (0-6); % Immature Granulocytes 4.4 % (0-0.5); % Lymphocytes 9.9 % (20.5-51.1); % Monocytes 10.7 % (1.7-9.3); % Neutrophils 73.8 % (42.2-75.2); Absolute Immature Granulocytes 0.3 10^3/uL (0-0.05); Absolute Lymphocytes 0.6 10^3/uL (1.2-3.4); Absolute Monocytes 0.6 10^3/uL (0.1-0.6); Absolute Neutrophils 4.3 10^3/uL (1.4-6.5); Nucleated Red Blood Cells % 4.6 %
== END ==
LOC: REG 07:01
PROVIDERS: ATTENDING PHYSICIAN Internal Medicine Hematology & Oncology; FAMILY PHYSICIAN Family Medicine
DX: C50.919 Malignant neoplasm of unspecified site of unspecified female breast (principal); C79.51 Secondary malignant neoplasm of bone; D64.9 Anemia, unspecified; I26.99 Other pulmonary embolism without acute cor pulmonale; C78.7 Secondary malignant neoplasm of liver and intrahepatic bile duct
CPT/HCPCS: 36415; 80053; 85025

== ENCOUNTER 2023-10-15 19:09 | Inpatient (IN) | payer OTHER, SELFPAY ==
[2023-10-15] VITALS (10 sets, daily range): BP systolic 101–110; BP diastolic 64–72; BMI 21.5; BMI 20.9
--- NOTE | 2023-10-15 13:18 | ED.GENMED ---
History of Present Illness
General
Chief Complaint: Abnormal Lab Value
Time Seen by Provider: 10/15/23 12:45
History of Present Illness
History of Present Illness:
Patient is a 58-year-old woman with history of metastatic breast cancer with mets to the liver on chemotherapy, PE on Eliquis presenting to the emergency department with abnormal blood work. Patient states that her bilirubin was found to be
elevated so her oncologist told her to come here. She states that she started with some bloating that has been ongoing. She has been having difficulty sleeping secondary to it and has been having decreased appetite. She is also noticed worsening
bilateral lower extremity swelling that been ongoing for many weeks. She is compliant with her medications. She denies any jaundice. She has been having some skill labor stool. No hemoptysis. No chest pain. No difficulty breathing. She did have
her gallbladder removed many years ago.
Patient states that she she has been having worsening ascites but her oncologist wanted to hold off on paracentesis
Past History
Past History
ED Past Medical History: Other (Stage IV Breast cancer with metastasis to the spine. Previous cholecystectomy)
ED Past Surgical History: Cholecystectomy, Gynecological and Other (Sinus)
Social History
Tobacco: Non-smoker
Alcohol: Occasional
Drug: None
Personal:
Living: with family
Employment: Employed
Family History
Family History: Other (Mother and aunt with history of gallbladder disease.)
Phy Exam
Physical Exam
Physical Exam:
GENERAL: in no acute distress
HEENT: normocephalic, extraocular movements intact, moist oral mucosa
NECK: normal inspection
RESPIRATORY: no respiratory distress, clear to auscultation bilaterally
CARDIOVASCULAR: regular rate and rhythm
ABDOMEN/: soft, distended, diffusely tender but worse in the right lower quadrant no rebound or guarding
EXTREMITIES: non-tender, no edema/swelling
NEUROLOGIC: awake and alert, moves all extremities
SKIN: warm
Course
Orders/Labs/Results
Orders:
Orders
10/15/23 13:05
CT Abd/Pel (IV only)-DH only Urgent
Comment:
Reason For Exam: abdominal pain, abnormal lft, RLQ tenderness
Diphenhydramine [Benadryl] 25 mg PO NOW STA
10/15/23 14:36
Hydrocortisone Sod Succinate [Solu-Cortef] 200 mg IV NOW STA
10/15/23 14:39
Direct Bilirubin Urgent
10/15/23 15:08
Prothrombin Time Urgent
Abnormal Lab Results
10/15/23
14:39
Direct Bilirubin 4.4 H mg/dl
(0.0-0.4)
Vital Signs
Initial and Last Documented VS:
Initial Vital Signs
Temp Pulse Resp BP Pulse Ox
97.6 F 96 19 108/71 98
10/15/23 12:08 10/15/23 12:08 10/15/23 12:08 10/15/23 12:08 10/15/23 12:08
Last Documented Vital Signs
Temp Pulse Resp BP Pulse Ox
97.6 F 92 16 104/67 97
10/15/23 12:08 10/15/23 16:03 10/15/23 14:00 10/15/23 16:00 10/15/23 16:00
MDM/Problems Addressed
Differential Diagnosis Includes:
Patient is a 58-year-old woman with history of metastatic breast cancer currently on chemotherapy, PE on Eliquis presenting to the emergency department with abnormal bilirubin and abdominal pain. Vitals are unremarkable and exam does show distended
abdomen with tenderness diffusely but worse in the right lower quadrant. Differential is broad but consists of obstructive pathology versus worsening mets versus appendicitis or ovarian pathology. Blood work obtained this morning does show a
normal white count. Hemoglobin is 9.1 and it was 10.1 about 2 weeks ago. CMP is notable for elevated AST and ALT that has been slowly uptrending as well as elevated alk phos. Her bilirubin is 4.7. Unfortunately no direct bilirubin so we will add
and obtain coags. Given the right lower quadrant tenderness also obtain CT scan for further relation.
*Critical Care Note
Total Time (30-74mins, 75-104mins- exclusive of procedures): Not Applicable
Update Note
Update Note:
Blood work does show elevated bilirubin. Direct bilirubin is also elevated. CT scan with worsening metastases and worsening ascites. No obvious obstruction. Discussed with hospitalist who accepted patient to their service.
ED Attending Note
-
Portions of this chart may have been created with voice recognition software.� Occasional wrong word or��sound alike� substitutions may have occurred due to the inherent limitations of voice recognition software.
Discharge Plan
Departure
Patient Disposition: Admit
Date of Disposition: 10/15/23
Time of Disposition: 18:05
Presentation/result/management discussed w/ accepting MD/DO: Hospitalist
Discharge Problem:
Obstructive jaundice
Prescriptions:
No Action
Eliquis 5 MG tablet
5 mg PO BID 30 Days Qty: 60 2RF
Xgeva 120 mg/1.7 mL (70 mg/mL) Solution
120 mg SC .EVERY 3 MONTHS
magnesium 200 mg Tablet
250 mg PO DAILY
buprenorphine HCl [Belbuca] 450 mcg Film
450 mcg BUCCAL Q12H
Truqap 200 mg Tablet
200 mg PO .QPM -
Rx Instructions:
administer for 4 days, followed by 3 days off
Truqap 200 mg Tablet
400 mg PO . DAILY -
Rx Instructions:
administer for 4 days, followed by 3 days off
loperamide 2 mg Capsule
2 mg PO Q4H PRN (Reason: diarrhea)
ondansetron 4 mg Tablet,Disintegrating
4 mg PO Q6H PRN (Reason: nausea)
fulvestrant 250 mg/5 mL Syringe
500 mg IM QMONTH
calcium carbonate [Calcium 600] 600 mg calcium (1,500 mg) Tablet
600 mg PO DAILY
Women's 50 Plus Multivitamin 400 mcg-500 mg calcium-20 mcg Tablet
1 tab PO DAILY
Referrals:
Manuel Ramires MD [Family Provider] -
Interventions
Interventions:
*Risk Screen - Suicide Last Done: 10/15/23 12:47
*General Assessment Last Done: 10/15/23 12:47
*Neglect/Abuse Screening Last Done: 10/15/23 12:47
*ED COVID-19 Vaccine History Last Done: 10/15/23 12:47
Discharge Date and Time
Print Language: SAMMARINESE
[2023-10-15] MEDS: BENADRYL 25 MG PO (13:19)
[2023-10-15] MEDS: SOLU-CORTEF 200 MG IV (14:43)
[2023-10-15 15:09] LABS: Direct Bilirubin 4.4 mg/dl (0.0-0.4)
--- NOTE | 2023-10-15 18:08 | W.PN.UPDATE ---
Update Note
Progress Note Update
I saw and examined the patient.
The TEAM OTR TRUCK DRIVER or PA's note was reviewed and I agree with the note.
Comment: 58-year-old female who presents with chief complaint of elevated bilirubin.
107/70, 103, 16, 97.6 �F, 95% RA
Gen: NAD, AAOx3, appears chronically ill, malnourished, cachectic
Eyes: EOMI, PERRLA, trace scleral icterus.
Neck: supple.
CV: RRR, +S1/S2, no m/r/g.
Resp: CTAB, no rales, wheezes, or rhonchi.
Abd: +BS, soft, moderate distention, severe hepatomegaly
Skin: No rashes.
Neuro: CN 2-12 intact, non-focal.
Psych: Normal mood and affect.
Lab Results
10/15/23 10/15/23
13:43 14:39
PT Cancelled
INR Cancelled
Direct Bilirubin Cancelled 4.[address] A/P: Progressive large amount of ascites within the abdomen and pelvis. There are a few small peritoneal nodules, suspicious for metastatic disease. Marked hepatomegaly with extensive diffuse metastatic disease. Findings suspicious for metastatic
disease involving the right posterolateral lower chest wall. The appendix is normal. No bowel obstruction. No obstructive uropathy. Trace right pleural effusion and mild pleural thickening. Mild interstitial prominence at the lung bases.
Nonspecific. Possibly reflecting hypoinflation. There are a few subpleural small nodular opacities noted at the lung bases, possibly minor subpleural foci of atelectasis. Cannot entirely exclude subtle tiny and/or early metastatic foci. Extensive
osseous metastatic disease noted. Chronic compression fracture of T11. Multilevel mild lumbar compression deformities, age indeterminate, likely chronic.
Obstructive jaundice:
-Patient with history of metastatic breast cancer with known metastases to the liver
-CT A/P above notable for hepatomegaly with extensive diffuse metastatic disease. Most likely the patient's obstructive jaundice is due to metastatic disease in the liver.
-c/s ONC and GI
-check MRI abd with MRCP to assess for focal biliary tract narrowing that would be amenable to stenting
-Patient reports some shortness of breath due to ascites, consult IR for therapeutic paracentesis
--- NOTE | 2023-10-15 18:49 | HPS.HSE ---
Family Physician
-
Family Physician: Manuel Ramires
Chief Complaint
-
Elevated Bilirubin
History of Present Illness
Patient is a 58 y/o female past medical history of Stage IV Metastatic Breast Cancer with bone and liver mets who present with elevated bilirubin. Patient had routine blood work as outpatient today which revealed elevated bilirubin and patient was
sent to the emergency department for evaluation. Patient notes slight yellowing of her eyes over the past few days. She reports increased abdominal distention and increasing lower extremity, reporting a 15lb weight gain in the past 2 months. She
denies abdominal pain, fever, sweats or chills.
Medical History
Past Medical History
Past Medical History: Reports Other
Additional Past Medical History:
Stage IV Metastatic Breast Cancer
Chronic Pain with Opioid Dependence
Pulmonary Embolism
Past Surgical History: Reports Other
Additional Past Surgical History:
Left Mastectomy
Social History
Tobacco: Non-smoker
Alcohol: None
Family History
Family History: Not pertinent
Allergies / Home Medications
Allergies reflects when Allergies were last updated in [employer].
Home Medications with original date entered in [employer]
Allergy/Medication List:
Allergies
Allergy/AdvReac Type Severity Reaction Status Date / Time
Cephalosporins Allergy Rash on Verified 09/25/23 07:06
tongue
Iodinated Contrast Media Allergy Rash Verified 09/25/23 07:06
penicillin G Allergy Rash on Verified 09/25/23 07:06
tongue
Penicillins Allergy Rash on Verified 09/25/23 07:06
tongue
Home Medications
apixaban 5 mg tablet (Eliquis) 5 mg PO BID 30 days #60 tabs 03/28/20
denosumab 120 mg/1.7 mL (70 mg/mL) subcutaneous solution (Xgeva) 120 mg SC [id number] 12/12/21
magnesium 200 mg tablet 250 mg PO DAILY 06/19/23
buprenorphine HCl 450 mcg buccal film (Belbuca) 450 mcg buccal Q12H 09/23/23
calcium carbonate (Calcium 600) 600 mg PO DAILY 09/23/23
loperamide 2 mg capsule 2 mg PO Q4HPRN PRN diarrhea 09/23/23
ondansetron 4 mg disintegrating tablet 4 mg PO Q6HPRN PRN nausea 09/23/23
wtmoqvpe-imn-oigjy ac 400 mcg-calcium carb 500 mg-vit K1 20 mcg tablet (Women's 50 Plus Multivitamin) 1 tab PO DAILY 09/25/23
furosemide 20 mg tablet 20 mg PO Q48H 10/15/23
Review of Systems
-
A 12 point ROS was completed and negative except as noted: Yes
Constitutional: Denies Fever or Chills
Respiratory: Denies Cough or Trouble Breathing
Cardiac: Denies Chest Pain or Palpitations
Abdomen/GI: Reports See HPI
Physical Exam
Vital Signs
Vital Signs
Temp Pulse Resp BP Pulse Ox
97.6 F 103 16 107/70 95
10/15/23 12:08 10/15/23 18:07 10/15/23 18:07 10/15/23 18:07 10/15/23 18:07
Physical Exam
General: Comfortable and Conversant
HEENT: Moist mucous membranes and Other (Eyes slightly icteric)
Respiratory: Clear and Non Labored Respirations
Cardiac: S1/S2 and Regular Rhythm
GI: Soft, Non Tender, Distended and Other (Hepatomegaly; Positive fluid wave)
Rectal: Deferred by Provider
Musculoskeletal: No Clubbing, No Cyanosis and Other (+4 pitting edema bilateral lower extremities)
Skin: Warm and Dry
Neuro: Awake, Alert, Oriented and Nonfocal/grossly intact
Psych: Calm
Laboratory Results
-
Laboratory Results
PT Cancelled 10/15/23 13:43
INR Cancelled 10/15/23 13:43
Data Reviewed
-
CT Scan: Report Reviewed by me
Lab Data: Labs Reviewed by me
Old Records: Reviewed
Impression/Plan
-
Obstructive Jaundice likely secondary to Liver Mets
-Consult Oncology and GI
-Check Abd MRI/MRCP
Abdominal Ascites
-Consult IR for paracentesis
-Check cytology
Stage IV Metastatic Breast Cancer - Known Liver and Bone Mets
-Last chemotherapy Oct 09
Chronic Pain with Opioid Dependence
-Continue buprenorphine
Hx Pulmonary Embolism
-Continue Eliquis
Code Status: Full Code
[2023-10-15 19:35] LABS: INR 1.48; PT 18.1 Sec (11.4-14.6)
[2023-10-15] MEDS: ELIQUIS 5 MG PO (20:32)
--- NOTE | 2023-10-15 23:52 | PTCARENOTE ---
Received pt from ED @ 1999. Pt AAOx3, VSS. IVT in to access port. Oriented to room, call dyson and plan of care.
[2023-10-16 05:55] LABS: Hematocrit 24.4 % (37.0-47.0); Hemoglobin 8.9 g/dL (12.0-16.0); Mean Corp Hgb Conc. 36.5 g/dL (33.0-37.0); Mean Corpuscular Hgb 30.3 pg (27.0-31.0); Mean Platelet Volume 9.2 fL (7.4-10.4); Platelet Count 211 10^3/uL (130-400); Red Blood Cell Count 2.94 10^6/uL (4.20-5.40); Red Cell Dist. Width 19.5 % (11.5-14.5); White Blood Cell Count 8.4 10^3/uL (4.8-10.8)
[2023-10-16 06:00] VITALS: BMI 20.7
[2023-10-16 06:45] LABS: ALT (SGPT) 190 U/L (0-35); AST (SGOT) 375 U/L (14-36); Albumin 2.6 g/dl (3.5-5.0); Alkaline Phosphatase 1006 U/L (38-126); Blood Urea Nitrogen 38 mg/dl (7-17); Calcium 9.1 mg/dl (8.4-10.2); Carbon Dioxide 21 mmol/L (22-30); Chloride 104 mmol/L (98-107); Estimated Creatinine Clearance 50 ml/min; Glucose 129 mg/dl (70-99); Magnesium 2.4 mg/dl (1.6-2.3); Potassium 5.5 mmol/L (3.5-5.1); Sodium 134 mmol/L (135-145); Total Bilirubin 4.7 mg/dl (0.2-1.3); eGFR 51.82
[2023-10-16 07:00] VITALS: BP 110/66
--- NOTE | 2023-10-16 07:39 | CON.GI ---
Addendum entered and electronically signed by Vitor Romero MD 10/16/23 18:44:
I saw and examined the patient.
The PA's note was reviewed and I agree with the note.
Comment:
58 year old female with h/o metastatic breast cancer (bone and liver), PE on Eliquis who p/w elevated liver enzymes, with findings concerning for obstructive jaundice.
Impression / Rec:
1. Elevated LFT/obstructive jaundice - CT was reviewed by me. Unfortunately her liver is studded with metastatic lesions. MRI/MRCP ordered but won't be helpful. I do not see any obvious biliary dilation which can be intervened. Recommend
palliative care.
Original Note:
Consultation
-
Date/Time Consultation Requested: 10/15/23 @ 19:48
Date/Time Consultation Performed: 10/16/23 @ 08:00
Requesting Provider: Adelaide Watt PA-C
Performing Provider: ALTON Mitchell; Dr. Vitor Romero
Reason for Consultation: obstructive jaundice
Medical History
Chief Complaint / HPI
Chief Complaint: elevated bilirubin
History of Present Illness:
The pt is a 58 yo female with a PMH significant for stage IV metastatic breast cancer with involvement of the bone and liver initially diagnosed in 2004 as stage I status post left total mastectomy with TRAM flap reconstruction with recurrence in
2019, DDD, chronic pain syndrome secondary to metastatic disease, history of PE on Eliquis, squamous cell carcinoma status post Mohs procedure, laparoscopic cholecystectomy, who presented to the emergency room for elevated liver enzymes, which we
are being asked to evaluate for. Patient reports that she initially was diagnosed with breast cancer in 2004 and at that time underwent mastectomy with TRAM flap reconstruction of the left breast. She had completed 5 years of tamoxifen therapy,
but unfortunately had recurrence of disease in 2019 with metastasis to the bone and liver. She recently started on chemotherapy again 1 week ago with her first treatment and is due for her second treatment tomorrow. She follows with Dr. Rankin
outpatient for oncology who is managing her palliative therapy. She reports getting weekly blood work done for her chemotherapy treatments, and it was noted that her bilirubin had significantly increased up to 4.7, therefore she was advised to go
to the ER to evaluate for possible obstructive process. She has had PET scan imaging done earlier this year that showed diffuse metastatic disease primarily to the liver and bones. She does admit to some shortness of breath on exertion along with
orthopnea. She notes that over the last few weeks she has noticed increased swelling in her abdomen although without any overt abdominal pain. She does feel bloated even without eating. She has gained about 15 pounds over the past month despite
having a low appetite. She otherwise denies any fevers, chills, nausea, vomiting, change in bowel habits, melena, hematochezia, or hematemesis. She is on Eliquis for history of PE in 2020, with her last dose being around 8 PM last night on 10/14.
Routine labs on admission showed hemoglobin 8.9, WBC 8.4, platelets 211,000, INR 1.48, sodium 134, potassium 5.5, BUN 30, creatinine 1.2, magnesium 2.4, total bilirubin 4.7, direct bilirubin 4.4, AST 375, ALT 190, alk phos 1006, albumin 2.6. A CT
of the abdomen and pelvis with IV contrast only showed progressive large amount of ascites in the abdomen and other findings suspicious for metastatic disease throughout the chest, abdomen, and bone as noted below. An MRI/MRCP was ordered and is
pending. IR was also consulted for paracentesis given her large ascites seen on imaging. She is being admitted for consultation by oncology and GI.
Past Medical History
Past Medical History: Cancer (Metastatic breast cancer with involvement of the bone and liver, initially diagnosed in 2004 status post mastectomy and TRAM flap reconstruction, with recurrence of disease in 2019) and Other (History of PE on Eliquis,
squamous cell carcinoma status post Mohs procedure, DDD)
Past Surgical History: Cholecystectomy and Other (Left total mastectomy and reconstruction, breast biopsy, D&C, wisdom tooth extraction, nasal septoplasty, sinus surgery, Mohs procedure)
Social History
Tobacco: Non-Smoker
Alcohol: Occasional
Drug: None
Personal:
Living: With Family
Family History
Family History: Reviewed & Not Pertinent
Allergies / Home Medications
Allergy/AdvReac Type Severity Reaction Status Date / Time
Cephalosporins Allergy Rash on Verified 09/25/23 07:06
tongue
Iodinated Contrast Media Allergy Rash Verified 09/25/23 07:06
penicillin G Allergy Rash on Verified 09/25/23 07:06
tongue
Penicillins Allergy Rash on Verified 09/25/23 07:06
tongue
�Medication �Instructions �Recorded
apixaban 5 mg tablet (Eliquis) 5 mg PO BID 30 days #60 tabs 03/28/20
denosumab 120 mg/1.7 mL (70 mg/mL) 120 mg SC [id number] 12/12/21
subcutaneous solution (Xgeva)
magnesium 200 mg tablet 250 mg PO DAILY 06/19/23
buprenorphine HCl 450 mcg buccal 450 mcg buccal Q12H 09/23/23
film (Belbuca)
calcium carbonate (Calcium 600) 600 mg PO DAILY 09/23/23
loperamide 2 mg capsule 2 mg PO Q4HPRN PRN diarrhea 09/23/23
ondansetron 4 mg disintegrating 4 mg PO Q6HPRN PRN nausea 09/23/23
tablet
iuhvtcgz-sqx-vtafk ac 400 1 tab PO DAILY 09/25/23
mcg-calcium carb 500 mg-vit K1 20
mcg tablet (Women's 50 Plus
Multivitamin)
furosemide 20 mg tablet 20 mg PO Q48H 10/15/23
Review of Systems
-
History Source: Patient
Constitutional: Reports Weight Gain
EENT: Reports No Symptoms
Respiratory: Reports Trouble Breathing
Cardiac: Reports No Symptoms
Abdomen/GI: Reports Anorexia and Other (Abdominal distention)
Musculoskeletal: Reports Edema (Bilateral lower extremity edema)
Skin: Reports No Symptoms
Neurological: Reports No Symptoms
Vital Signs
Temp Pulse Resp BP Pulse Ox
97.8 F 107 18 101/64 97
10/15/23 23:19 10/15/23 23:19 10/15/23 23:19 10/15/23 23:19 10/15/23 23:19
Physical Exam
Exam
General: No Apparent Distress and Other (Chronically ill, frail, thin appearing female)
HEENT: Normocephalic, Atraumatic and Other (+scleral icterus)
Respiratory: Clear
Cardiac: S1/S2 and Regular Rhythm
GI: Non Tender, Distended and Other (Firm)
Rectal: Deferred by Provider
Musculoskeletal: Edema (+2 pitting edema to BL LE)
Skin: Warm, Dry and Other (jaundice)
Neuro: Awake, Alert and Oriented
Psych: Calm
Results
WBC 8.4 10^3/uL (4.8-10.8) 10/16/23 05:47
Hgb 8.9 g/dL (12.0-16.0) L 10/16/23 05:47
Hct 24.4 % (37.0-47.0) L 10/16/23 05:47
MCV 83.0 fL (81.0-99.0) 10/16/23 05:47
Plt Count 211 10^3/uL (130-400) 10/16/23 05:47
PT 18.1 Sec (11.4-14.6) H 10/15/23 19:17
INR 1.48 10/15/23 19:17
Sodium 134 mmol/L (135-145) L 10/16/23 05:47
Potassium 5.5 mmol/L (3.5-5.1) H 10/16/23 05:47
Chloride 104 mmol/L (98-107) 10/16/23 05:47
Carbon Dioxide 21 mmol/L (22-30) L 10/16/23 05:47
BUN 38 mg/dl (7-17) H 10/16/23 05:47
Creatinine 1.2 mg/dL (0.6-1.0) H 10/16/23 05:47
Calcium 9.1 mg/dl (8.4-10.2) 10/16/23 05:47
Total Bilirubin 4.7 mg/dl (0.2-1.3) H 10/16/23 05:47
AST 375 U/L (14-36) H 10/16/23 05:47
ALT 190 U/L (0-35) H 10/16/23 05:47
Alkaline Phosphatase 1006 U/L (38-126) H 10/16/23 05:47
Diagnostic Image Results:
10/15/23 CT A/P w/IV contrast only: IMPRESSION: Progressive large amount of ascites within the abdomen and pelvis. There are a few small peritoneal nodules, suspicious for metastatic disease. Marked hepatomegaly with extensive diffuse metastatic
disease. Findings suspicious for metastatic disease involving the right posterolateral lower chest wall. The appendix is normal. No bowel obstruction. No obstructive uropathy. Trace right pleural effusion and mild pleural thickening. Mild
interstitial prominence at the lung bases. Nonspecific. Possibly reflecting hypoinflation. There are a few subpleural small nodular opacities noted at the lung bases, possibly minor subpleural foci of atelectasis. Cannot entirely exclude subtle tiny
and/or early metastatic foci. Extensive osseous metastatic disease noted. Chronic compression fracture of T11. Multilevel mild lumbar compression deformities, age indeterminate, likely chronic.
10/15/23 US abdomen: IMPRESSION: No evidence of right or left lower extremity deep venous thrombosis.
07/05/23 PET scan: IMPRESSION:
1. Mixed response to therapy, overall progression of disease, with minimal decrease in FDG avidity in the hilar lymph nodes and at T10.
2. There is significant increase in size, number and conspicuity of multiple lesions throughout the liver consistent with progression of disease.
3. Chemotherapeutic response throughout the skeleton. There is a slight decrease in FDG avidity at T10, there is increased FDG avidity in the left paraspinal soft tissues at T7, increased uptake in the L4 vertebral body. Consistent with
progression of disease.
4. Persistent FDG avidity of the hilar lymph nodes, minimally improved.
5. New 9 mm posterior right cervical chain FDG avid lymph node consistent with metastatic
6. Acute on chronic sinus disease.
Prior GI Procedures:
EGD: none on file
Colonoscopy: none on file
Assessment / Plan
-
The pt is a 58 yo female with a PMH significant for stage IV metastatic breast cancer with involvement of the bone and liver initially diagnosed in 2004 as stage I status post left total mastectomy with TRAM flap reconstruction with recurrence of
disease in 2020, DDD, chronic pain syndrome secondary to metastatic disease, history of PE on Eliquis, squamous cell carcinoma status post Mohs procedure, laparoscopic cholecystectomy, who presented to the emergency room for elevated liver enzymes,
with findings concerning for obstructive jaundice given her metastatic disease. She has had progressively worsening LFTs, with a spike in her bilirubin to 4.7. She was sent to the ER by her oncology group, but has had no pain, nausea, or vomiting.
She is status post 1 cycle of her new chemo regimen last week and is due for her second dose tomorrow which she is on for palliative measures. She follows with Dr. Rankin. CT of the abdomen and pelvis did show a large amount of abdominal ascites
along with finding consistent with previously known metastatic disease. Pertinent labs: Total bilirubin 4.7, direct bilirubin 4.4, AST 375, ALT 190, alk phos 1006, sodium 134, potassium 5.5, BUN 30, creatinine 1.2.
Problem list:
-elevated LFT's
-metastatic breast cancer with extensive involvement of the liver and bone
-normocytic anemia
-hyperkalemia
-DARRYL
-painless jaundice
Other pertinent medical hx:
-hx PE on Eliquis
-SCC s/p Moh's procedure
-Lap CCY
-DDD
Recommendations:
-Etiology of abnormal LFTs likely secondary to her metastatic cancer with diffuse hepatic metastasis versus other obstructive biliary process versus other.
---Less likely acute obstruction given her lack of pain.
-Await MRI/MRCP
-Will hold Eliquis this morning pending MRI/MRCP results. If no intervention needed would resume at normal dosing. If evidence of stricture/obstructive process warranting stenting will need to hold Eliquis for 48 hours/or can utilize IV heparin
for bridging if deemed high risk for recurrent clot (defer to medicine/onc).
-Trend LFTs
-Agree with therapeutic paracentesis for symptom management given large volume of ascites on CT
-Further management as per medicine and oncology
Data Reviewed
-
CT Scan: Report Reviewed by me
-
-
Thank you for consultation and allowing me to participate in the patient's care. Please call the operation agent GI physician during the after hours with any questions or concerns.
--- NOTE | 2023-10-16 08:10 | CON.ONC ---
Impression
Impression
Non obstructive Jaundice secondary to extensive liver metastatic disease
Ascites
Stage IV Metastatic Breast Cancer - Known Liver and Bone Mets
Hx Pulmonary Embolism
Code Status: Full Code
Plan
Plan
MRI/MRCP ordered. Not sure what it adds. CT does not reveal a site of obstruction and shows extensive liver mets.
Proceed with paracentesis for comfort.
Outpatient PET scan.
Resume palliative chemotherapy as outpt post D/C.
Anticipate D/C this afternoon unless GI sees something on MRI amenable to percutaneous or intrahepatic (stenting) procedure.
Patient History
History of Present Illness
CC: Elevated Bilirubin, Met Breast Ca
HPI: 58 y/o female with metastatic breast cancer with bone and extensive liver mets who present with elevated bilirubin. Patient had routine blood work as outpatient with bili = 4.7 and patient was refered to the emergency department for
evaluation. She has increased abdominal distention and increasing lower extremity edema, reporting a 15lb weight gain in the past 2 months. She denies abdominal pain, fever, sweats or chills.
Past-Medical/Surgical History
PMH:
Stage IV Metastatic Breast Cancer
Chronic Pain with Opioid Dependence
Pulmonary Embolism
PSH:
Ectopic 1995
Delay of TRAM 10/2004
L Mastectomy & TRAM flap reconstruction 10/2004
Sinus polyp removal 2015
Gallbladder removal 11/2018
Social History
Patient denies ever using tobacco.
Patient reports alcohol use as follows: Patient reports on average 2 drinks per day of alcohol/beer. [employer] Marital Status: Patient is with 2 child/children.
Gynecological History
Patient reports 4 pregnancies. 2 miscarriages.
Family History
Father has a history of melanoma .
Patient has a family history of PGF-Lung PGM- Leukemia .
Patient Medication
�Medication �Instructions �Recorded �Confirmed �Last Taken �Type
apixaban 5 mg tablet (Eliquis) 5 mg PO BID 30 days #60 tabs 03/28/20 10/15/23 10/15/23 Rx
denosumab 120 mg/1.7 mL (70 mg/mL) 120 mg SC [id number] 12/12/21 10/15/23 2 Months Ago History
subcutaneous solution (Xgeva) ~07/26/23
magnesium 200 mg tablet 250 mg PO DAILY 06/19/23 10/15/23 09/23/23 19:30 History
buprenorphine HCl 450 mcg buccal 450 mcg buccal Q12H 09/23/23 10/15/23 10/14/23 History
film (Belbuca)
calcium carbonate (Calcium 600) 600 mg PO DAILY 09/23/23 10/15/23 09/24/23 07:30 History
loperamide 2 mg capsule 2 mg PO Q4HPRN PRN diarrhea 09/23/23 10/15/23 09/20/23 History
ondansetron 4 mg disintegrating 4 mg PO Q6HPRN PRN nausea 09/23/23 10/15/23 Unknown History
tablet
eojyyhjz-qlt-hqjgg ac 400 1 tab PO DAILY 09/25/23 10/15/23 09/24/23 07:30 History
mcg-calcium carb 500 mg-vit K1 20
mcg tablet (Women's 50 Plus
Multivitamin)
furosemide 20 mg tablet 20 mg PO Q48H 10/15/23 10/15/23 10/13/23 History
Active Medications
Generic Name Dose Route Start Last Admin
Trade Name Freq PRN Reason Stop Dose Admin
Acetaminophen 650 mg 10/15/23 19:48
Acetaminophen 325 Mg Tablet PO 11/12/23 19:47
Q4HPRN PRN
mild pain/ fever>100.5F
Apixaban 5 mg 10/15/23 20:00 10/15/23 20:32
Apixaban (Eliquis) 5 Mg Tablet PO 11/12/23 19:59 5 mg
BID TAJ Administration
Furosemide 20 mg 10/16/23 08:00
Furosemide 20 Mg Tablet PO 11/13/23 07:59
Q48H TAJ
Heparin Sodium (Porcine) 500 unit 10/15/23 21:15 10/15/23 21:14
Heparin Flush Pf (100 Unit/Ml) 5 Ml Syringe IV 11/12/23 21:14 500 unit
PER PROTOCOL TAJ Administration
Magnesium 84 mg 10/16/23 08:00
Magnesium Lactate 84 Mg Tablet PO 11/13/23 07:59
DAILY TAJ
Non-Formulary Medication 450 mcg 10/16/23 08:00
Buprenorphine Hcl [Belbuca] BUCCAL 11/13/23 07:59
Q12 TAJ
Sodium Chloride 0 flush 10/15/23 21:00
Sodium Chloride 0.9% (Flush) Syringe IV 11/12/23 20:59
PER PROTOCOL TAJ
Physical Exam
-
General: Well Developed, Well Nourished and No Apparent Distress
HEENT: Jaundice
Cardiology: S1 and S2
Pulmonary: Clear
GI: Soft, Distended and Fluid Wave
Musculoskeletal: Edema, Right Lower Extrem and Edema, Left Lower Extrem
Extremities: Pulses Present and Edema
Neurology: Non Focal
Skin: Warm
Psych: Calm
Labs
Lab Results
WBC 8.4 10^3/uL (4.8-10.8) 10/16/23 05:47
RBC 2.94 10^6/uL (4.20-5.40) L 10/16/23 05:47
Hgb 8.9 g/dL (12.0-16.0) L 10/16/23 05:47
Hct 24.4 % (37.0-47.0) L 10/16/23 05:47
MCV 83.0 fL (81.0-99.0) 10/16/23 05:47
MCH 30.3 pg (27.0-31.0) 10/16/23 05:47
MCHC 36.5 g/dL (33.0-37.0) 10/16/23 05:47
RDW 19.5 % (11.5-14.5) H 10/16/23 05:47
Plt Count 211 10^3/uL (130-400) 10/16/23 05:47
MPV 9.2 fL (7.4-10.4) 10/16/23 05:47
Creatinine 1.2 mg/dL (0.6-1.0) H 10/16/23 05:47
Vital Signs
Vital Signs
Temp Pulse Resp BP Pulse Ox
97.8 F 107 18 101/64 97
10/15/23 23:19 10/15/23 23:19 10/15/23 23:19 10/15/23 23:19 10/15/23 23:19
[2023-10-16] MEDS: ELIQUIS PO (08:22)
[2023-10-16 08:33] VITALS: BP 108/69; BP_SYST 94
[2023-10-16 09:13] VITALS: BP 105/66
--- NOTE | 2023-10-16 09:50 | W.PN.HOSP.TC ---
Addendum entered and electronically signed by Raphael Blair MD 10/16/23 16:39:
Total time spent on d/c = 33 min. This included today's physical exam, progress note, review of laboratory and diagnostic data, preparation of discharge documents and prescriptions, and discussions about the pt's hospital course and discharge plan
with the patient and other medical sales consultant involved in the patient's care.
Original Note:
Today's Communication/Plan
-
see bold
Assessment / Plan
Assessment / Plan
Gen: NAD, AAOx3, appears chronically ill, malnourished, cachectic
Eyes: EOMI, PERRLA, trace scleral icterus.
Neck: supple.
CV: RRR, +S1/S2, no m/r/g.
Resp: CTAB, no rales, wheezes, or rhonchi.
Abd: +BS, soft, moderate distention, severe hepatomegaly
Skin: No rashes.
Neuro: CN 2-12 intact, non-focal.
Psych: Normal mood and affect.
CT A/P: Progressive large amount of ascites within the abdomen and pelvis. There are a few small peritoneal nodules, suspicious for metastatic disease. Marked hepatomegaly with extensive diffuse metastatic disease. Findings suspicious for metastatic
disease involving the right posterolateral lower chest wall. The appendix is normal. No bowel obstruction. No obstructive uropathy. Trace right pleural effusion and mild pleural thickening. Mild interstitial prominence at the lung bases.
Nonspecific. Possibly reflecting hypoinflation. There are a few subpleural small nodular opacities noted at the lung bases, possibly minor subpleural foci of atelectasis. Cannot entirely exclude subtle tiny and/or early metastatic foci. Extensive
osseous metastatic disease noted. Chronic compression fracture of T11. Multilevel mild lumbar compression deformities, age indeterminate, likely chronic.
Jaundice:
-Patient with history of metastatic breast cancer with known metastases to the liver. Jaundice is possibly due to a focal biliary obstruction but more likely due to bulky metastatic disease to the liver.
-CT A/P above notable for hepatomegaly with extensive diffuse metastatic disease.
-ONC and GI following, case discussed with Dr. Rivas at length
-check MRI abd with MRCP to assess for focal biliary tract narrowing that would be amenable to stenting
-Patient reports some shortness of breath due to ascites, now s/p therapeutic paracentesis for 1400cc, follow fluid studies
Hyperkalemia:
-insulin 10U IV, 25g D50W
-start Lokelma
Stage IV Metastatic Breast Cancer - Known Liver and Bone Mets
-Last chemotherapy 10/10/23
Chronic pain with with chronic opioid use with dependence
-Continue buprenorphine
Hx Pulmonary Embolism
-Continue Eliquis
FULL/Eliquis
Anticipated Discharge: Within 24 hours
Subjective/Interval History
-
Date of Service: October 16, 2023
No new complaints.
Objective Data
-
Labs:
Laboratory Results
10/16/23
05:47
WBC 8.4
Hgb 8.9 L
Hct 24.4 L
Plt Count 211
Sodium 134 L
Potassium 5.5 H
Chloride 104
Carbon Dioxide 21 L
BUN 38 H
Creatinine 1.2 H
Glucose 129 H
Calcium 9.1
Total Bilirubin 4.7 H
AST 375 H
ALT 190 H
Alkaline Phosphatase 1006 H
Vital Signs:
Vital Signs
Temp Pulse Resp BP Pulse Ox
97.6 F 86 18 105/66 98
10/16/23 08:33 10/16/23 09:13 10/16/23 09:13 10/16/23 09:13 10/16/23 08:33
I&O
10/15/23 10/16/23 10/17/23
06:59 06:59 06:59
Intake Total 480 / 480
Balance 480 / 480
[2023-10-16] MEDS: LOKELMA 10 GRAM PO ×2 (10:23→15:36)
[2023-10-16] MEDS: NOVOLIN R 0.1 UNITS IV (10:23)
[2023-10-16] MEDS: DEXTROSE 50% SYRINGE 25 GRAMS IV (10:26)
[2023-10-16 10:35] LABS: Body Fluid Albumin < 1.0 g/dl; Body Fluid Amylase 68 U/L; Body Fluid LDH 105 U/L; Body Fluid Protein < 2.0 g/dl
[2023-10-16 10:38] LABS: Body Fluid Mononuclear 85.3 %; Body Fluid Polymorphonuclear 14.7 %; Body Fluid WBC 68 /CUMM
[2023-10-16 11:29] LABS: Body Fluid Second Tech RLT
--- NOTE | 2023-10-16 13:37 | CM ---
manager student services reviewed patient's chart and met with patient and spouse at bedside, patient reports she is independent with adl's and ambulation, per patient plan is to home today no needs.
Pharmacy: [facility]
PCP: Dr. Ramires
Plan; Home no needs.
[2023-10-16 15:00] VITALS: BP 112/68
[2023-10-16 16:31] LABS: Potassium 4.7 mmol/L (3.5-5.1)
--- NOTE | 2023-10-17 13:28 | W.DCSUMMARY ---
Discharge Summary
Discharge Data
Date of Admission: 10/15/23
Date of Discharge: 10/16/23
-
Pending Results: No
Hospital Course
Primary diagnoses:
Elevated bilirubin
Secondary diagnoses:
Hyperkalemia
Stage IV Metastatic Breast Cancer (Liver and Bone metastases)
Chronic pain with with chronic opioid use with dependence
h/o Pulmonary Embolism
Consultants:
Oncology
Gastroenterology
Imaging:
CT A/P: Progressive large amount of ascites within the abdomen and pelvis. There are a few small peritoneal nodules, suspicious for metastatic disease. Marked hepatomegaly with extensive diffuse metastatic disease. Findings suspicious for metastatic
disease involving the right posterolateral lower chest wall. The appendix is normal. No bowel obstruction. No obstructive uropathy. Trace right pleural effusion and mild pleural thickening. Mild interstitial prominence at the lung bases.
Nonspecific. Possibly reflecting hypoinflation. There are a few subpleural small nodular opacities noted at the lung bases, possibly minor subpleural foci of atelectasis. Cannot entirely exclude subtle tiny and/or early metastatic foci. Extensive
osseous metastatic disease noted. Chronic compression fracture of T11. Multilevel mild lumbar compression deformities, age indeterminate, likely chronic.
Hospital course: 58-year-old female who presented with a chief complaint of elevated bilirubin as outlined in H&P done on admission. CT scan of the abdomen pelvis above and notable for hepatomegaly with extensive diffuse metastatic disease. The
patient had a history of metastatic breast cancer with known metastases to the liver. Her jaundice was clearly due to bulky metastatic disease to the liver. Patient was seen consultation by oncology and gastroenterology. The case was discussed
with Dr. Rivas at length. Also discussed with GI. There was no indication for further imaging. The patient did undergo a therapeutic paracentesis for 1400cc (WBC 68, no SBP). She was discharged in medically stable condition with an extremely
poor prognosis.
Discharge Plan
-
Patient Disposition: Home (Routine Discharge)
Discharge Diagnosis/Procedures: Elevated bilirubin due to metastatic breast cancer to the liver, hyperkalemia
Condition: Fair
Diet: As tolerated
Activity: As tolerated
Driving Restrictions: As prior to admission
Referrals:
Manuel Ramires MD [Family Provider] - in less than 1 week
Antonio Coyne DO [Active] - in less than 1 week
Prescriptions:
Continued
Eliquis 5 MG tablet
5 mg PO BID 30 Days Qty: 60 2RF
Xgeva 120 mg/1.7 mL (70 mg/mL) Solution
120 mg SC [id number]
magnesium 200 mg Tablet
250 mg PO DAILY
buprenorphine HCl [Belbuca] 450 mcg Film
450 mcg BUCCAL Q12H
Patient Comments:
10/15/2023: last filled 09/20/23, 60 film for 30 days from [facility]
loperamide 2 mg Capsule
2 mg PO Q4HPRN PRN (Reason: diarrhea)
ondansetron 4 mg Tablet,Disintegrating
4 mg PO Q6HPRN PRN (Reason: nausea)
calcium carbonate [Calcium 600] 600 mg calcium (1,500 mg) Tablet
600 mg PO DAILY
Women's 50 Plus Multivitamin 400 mcg-500 mg calcium-20 mcg Tablet
1 tab PO DAILY
furosemide 20 mg tablet
20 mg PO Q48H
Discharge Orders:
Discharge Patient (As Directed); Ordered 10/16/23
Ordered By: Raphael Blair
Discharge Date and Time
Discharge Date/Time: 10/16/23 17:31
Print Language: INDIAN
[2023-10-17 18:54] LABS: Hepatitis C Antibody Negative (Negative)
== END 2023-10-16 17:31 | disposition home or self-care (01) | DRG 436 ==
LOC: 4 WEST ACU 19:09
PROVIDERS: Physician Assistant Medical; Radiology Diagnostic Radiology; ADMITTING PHYSICIAN Internal Medicine; CONSULT PHYSICIAN Internal Medicine Gastroenterology; CONSULT PHYSICIAN Internal Medicine Hematology & Oncology; EMERGENCY PHYSICIAN Student in an Organized Health Care Education/Training Program; FAMILY PHYSICIAN Family Medicine
PROC: 0W9G3ZX Drainage of Peritoneal Cavity, Percutaneous Approach, Diagnostic (ICD-10-PCS; 2023-10-16)
DX: C78.7 Secondary malignant neoplasm of liver and intrahepatic bile duct (principal); C79.51 Secondary malignant neoplasm of bone; R64 Cachexia; F11.20 Opioid dependence, uncomplicated; R18.0 Malignant ascites; C50.919 Malignant neoplasm of unspecified site of unspecified female breast; E87.5 Hyperkalemia; G89.3 Neoplasm related pain (acute) (chronic); G89.4 Chronic pain syndrome; Z86.711 Personal history of pulmonary embolism; Z68.20 Body mass index [BMI] 20.0-20.9, adult
CPT/HCPCS: 88305; 36415; 49083; 74177; 80053; 82042; 82150; 82248; 83615; 83735; 84132; 84157; 85025; 85027; 85610; 86803; 87015; 87070; 87205; 88112; 89051; 93970; 96374; 99285; Q9967

== ENCOUNTER → 2023-10-17 13:37 | Outpatient (REF) | payer OTHER, SELFPAY ==
[2023-10-17 10:51] LABS: % Basophils 0.2 % (0-2); % Eosinophils 0.1 % (0-6); % Immature Granulocytes 3.4 % (0-0.5); % Lymphocytes 4.2 % (20.5-51.1); % Monocytes 10.4 % (1.7-9.3); % Neutrophils 81.7 % (42.2-75.2); Absolute Immature Granulocytes 0.3 10^3/uL (0-0.05); Absolute Lymphocytes 0.4 10^3/uL (1.2-3.4); Absolute Neutrophils 8.1 10^3/uL (1.4-6.5); Hematocrit 25.1 % (37.0-47.0); Hemoglobin 9.4 g/dL (12.0-16.0); Mean Corp Hgb Conc. 37.5 g/dL (33.0-37.0); Mean Corpuscular Hgb 31.9 pg (27.0-31.0); Mean Corpuscular Volume 85.1 fL (81.0-99.0); Mean Platelet Volume 10.2 fL (7.4-10.4); Nucleated Red Blood Cells % 6.8 %; Platelet Count 242 10^3/uL (130-400); Red Blood Cell Count 2.95 10^6/uL (4.20-5.40); Red Cell Dist. Width 20.2 % (11.5-14.5); White Blood Cell Count 9.9 10^3/uL (4.8-10.8)
[2023-10-17 10:52] LABS: ALT (SGPT) 216 U/L (0-35); AST (SGOT) 477 U/L (14-36); Albumin 2.9 g/dl (3.5-5.0); Blood Urea Nitrogen 42 mg/dl (7-17); Calcium 9.6 mg/dl (8.4-10.2); Carbon Dioxide 20 mmol/L (22-30); Chloride 100 mmol/L (98-107); Glucose 100 mg/dl (70-99); Potassium 4.4 mmol/L (3.5-5.1); Sodium 135 mmol/L (135-145); Total Bilirubin 5.2 mg/dl (0.2-1.3); Total Protein 5.2 g/dl (6.3-8.2); eGFR 39.65
[2023-10-17 10:58] LABS: Alkaline Phosphatase 1031 U/L (38-126)
== END ==
LOC: OIDL 13:37
PROVIDERS: ATTENDING PHYSICIAN Internal Medicine Hematology & Oncology
DX: C50.919 Malignant neoplasm of unspecified site of unspecified female breast (principal)
CPT/HCPCS: 80053; 85025

== ENCOUNTER → 2023-10-21 07:15 | Outpatient (REF) | payer OTHER, SELFPAY ==
[2023-10-21 08:20] LABS: % Basophils 0.1 % (0-2); % Eosinophils 0.1 % (0-6); % Immature Granulocytes 0.7 % (0-0.5); % Lymphocytes 1.5 % (20.5-51.1); % Monocytes 0.5 % (1.7-9.3); % Neutrophils 97.1 % (42.2-75.2); Absolute Immature Granulocytes 0.1 10^3/uL (0-0.05); Absolute Lymphocytes 0.2 10^3/uL (1.2-3.4); Absolute Monocytes 0.1 10^3/uL (0.1-0.6); Absolute Neutrophils 10.2 10^3/uL (1.4-6.5); Hematocrit 24.1 % (37.0-47.0); Hemoglobin 8.7 g/dL (12.0-16.0); Mean Corp Hgb Conc. 36.1 g/dL (33.0-37.0); Mean Corpuscular Hgb 31.1 pg (27.0-31.0); Mean Corpuscular Volume 86.1 fL (81.0-99.0); Mean Platelet Volume 10.3 fL (7.4-10.4); Nucleated Red Blood Cells % 0.2 %; Platelet Count 220 10^3/uL (130-400); Red Cell Dist. Width 21.6 % (11.5-14.5); White Blood Cell Count 10.5 10^3/uL (4.8-10.8)
[2023-10-21 09:01] LABS: ALT (SGPT) 290 U/L (0-35); AST (SGOT) 684 U/L (14-36); Albumin 2.7 g/dl (3.5-5.0); Alkaline Phosphatase 1010 U/L (38-126); Blood Urea Nitrogen 53 mg/dl (7-17); Calcium 9.5 mg/dl (8.4-10.2); Carbon Dioxide 21 mmol/L (22-30); Chloride 101 mmol/L (98-107); Glucose 85 mg/dl (70-99); Potassium 4.7 mmol/L (3.5-5.1); Sodium 134 mmol/L (135-145); Total Bilirubin 6.8 mg/dl (0.2-1.3); Total Protein 5.1 g/dl (6.3-8.2); eGFR 43.07
== END ==
LOC: REG 07:15
PROVIDERS: ATTENDING PHYSICIAN Internal Medicine Hematology & Oncology; FAMILY PHYSICIAN Family Medicine
DX: C50.919 Malignant neoplasm of unspecified site of unspecified female breast (principal); C79.51 Secondary malignant neoplasm of bone; D64.9 Anemia, unspecified; I26.99 Other pulmonary embolism without acute cor pulmonale; C78.7 Secondary malignant neoplasm of liver and intrahepatic bile duct
CPT/HCPCS: 36415; 80053; 85025

== ENCOUNTER → 2023-10-30 07:17 | Outpatient (REF) | payer OTHER, SELFPAY ==
[2023-10-30 08:25] LABS: % Basophils 0.5 % (0-2); % Eosinophils 0.2 % (0-6); % Lymphocytes 4.1 % (20.5-51.1); % Monocytes 6.2 % (1.7-9.3); Absolute Basophils 0.1 10^3/uL (0-0.2); Absolute Eosinophils 0.1 10^3/uL (0-0.7); Absolute Lymphocytes 0.9 10^3/uL (1.2-3.4); Absolute Monocytes 1.3 10^3/uL (0.1-0.6); Absolute Neutrophils 17.6 10^3/uL (1.4-6.5); Hematocrit 21.3 % (37.0-47.0); Hemoglobin 7.6 g/dL (12.0-16.0); Mean Corp Hgb Conc. 35.7 g/dL (33.0-37.0); Mean Corpuscular Hgb 32.2 pg (27.0-31.0); Mean Corpuscular Volume 90.3 fL (81.0-99.0); Mean Platelet Volume 11.6 fL (7.4-10.4); Nucleated Red Blood Cells % 2.5 %; Platelet Count 127 10^3/uL (130-400); Red Blood Cell Count 2.36 10^6/uL (4.20-5.40); Red Cell Dist. Width 24.4 % (11.5-14.5); White Blood Cell Count 20.9 10^3/uL (4.8-10.8)
[2023-10-30 08:30] LABS: ALT (SGPT) 179 U/L (0-35); AST (SGOT) 234 U/L (14-36); Albumin 2.6 g/dl (3.5-5.0); Alkaline Phosphatase 1041 U/L (38-126); Blood Urea Nitrogen 58 mg/dl (7-17); Carbon Dioxide 19 mmol/L (22-30); Chloride 103 mmol/L (98-107); Glucose 95 mg/dl (70-99); Potassium 4.6 mmol/L (3.5-5.1); Sodium 135 mmol/L (135-145); Total Bilirubin 7.6 mg/dl (0.2-1.3); eGFR 39.65
== END ==
LOC: REG 07:17
PROVIDERS: ATTENDING PHYSICIAN Internal Medicine Hematology & Oncology; FAMILY PHYSICIAN Family Medicine
DX: C50.919 Malignant neoplasm of unspecified site of unspecified female breast (principal); C79.51 Secondary malignant neoplasm of bone; D64.9 Anemia, unspecified; I26.99 Other pulmonary embolism without acute cor pulmonale; C78.7 Secondary malignant neoplasm of liver and intrahepatic bile duct
CPT/HCPCS: 36415; 80053; 85025

== ENCOUNTER 2023-10-31 09:30 | Outpatient (RCR) | payer OTHER, SELFPAY ==
[2023-10-31 10:22] VITALS: BP 99/52
[2023-10-31 10:39] VITALS: BP 85/49
[2023-10-31 13:01] VITALS: BP 96/52
== END 2023-11-11 23:59 | disposition home or self-care (01) ==
LOC: OID 09:30
PROVIDERS: ATTENDING PHYSICIAN Internal Medicine Hematology & Oncology; FAMILY PHYSICIAN Family Medicine
DX: C50.912 Malignant neoplasm of unspecified site of left female breast (principal); C79.51 Secondary malignant neoplasm of bone; R06.02 Shortness of breath; Z17.0 Estrogen receptor positive status [ER+]
CPT/HCPCS: 36415; 36430; 86850; 86900; 86901; 86920; P9016

== ENCOUNTER → 2023-11-01 13:28 | Outpatient (REF) | payer OTHER, SELFPAY ==
[2023-11-01 18:13] LABS: Hematocrit 25.9 % (37.0-47.0); Mean Corp Hgb Conc. 34.7 g/dL (33.0-37.0); Mean Corpuscular Hgb 32.5 pg (27.0-31.0); Mean Corpuscular Volume 93.5 fL (81.0-99.0); Mean Platelet Volume 11.1 fL (7.4-10.4); Platelet Count 145 10^3/uL (130-400); Red Blood Cell Count 2.77 10^6/uL (4.20-5.40); Red Cell Dist. Width 23.5 % (11.5-14.5); White Blood Cell Count 24.9 10^3/uL (4.8-10.8)
[2023-11-01 18:36] LABS: % Basophils 0.4 % (0-2); % Eosinophils 0.2 % (0-6); % Immature Granulocytes 3.7 % (0-0.5); % Lymphocytes 3.2 % (20.5-51.1); % Monocytes 5.9 % (1.7-9.3); % Neutrophils 86.6 % (42.2-75.2); Absolute Basophils 0.1 10^3/uL (0-0.2); Absolute Eosinophils 0.1 10^3/uL (0-0.7); Absolute Immature Granulocytes 0.9 10^3/uL (0-0.05); Absolute Lymphocytes 0.8 10^3/uL (1.2-3.4); Absolute Monocytes 1.5 10^3/uL (0.1-0.6); Absolute Neutrophils 21.5 10^3/uL (1.4-6.5); Nucleated Red Blood Cells % 1.6 %
== END ==
LOC: OIDL 13:28
PROVIDERS: ATTENDING PHYSICIAN Internal Medicine Hematology & Oncology
DX: C50.919 Malignant neoplasm of unspecified site of unspecified female breast (principal); C79.51 Secondary malignant neoplasm of bone; D64.9 Anemia, unspecified
CPT/HCPCS: 85025